=== PATIENT | female | born 1950 | race Caucasian/White ===

== ENCOUNTER 2017-01-28 10:08 | Outpatient (POV) | payer OTHER, SELFPAY | END 2017-01-28 11:43 | disposition home or self-care (01) | PROVIDERS: Visit Provider Podiatrist | DX: M20.12 Hallux valgus (acquired), left foot (principal); M20.11 Hallux valgus (acquired), right foot; L84 Corns and callosities ==

== ENCOUNTER → 2017-05-28 09:05 | Outpatient (REF) | payer OTHER, SELFPAY | LOC: LAB 09:05 | PROVIDERS: Visit Provider Physician Assistant | DX: R10.9 Unspecified abdominal pain (principal) | CPT/HCPCS: 87086; 87088; 87186 ==

== ENCOUNTER → 2018-01-14 13:31 | Outpatient (CLI) | payer MEDICARE, SELFPAY ==
[2018-01-14 14:02] LABS: Basophils # 0.1 K/mm3 (0-0.2); Basophils % 1.2 % (0.1-2.0); Eosinophils # 0.2 K/mm3 (0.0-0.4); Hematocrit 44.4 % (37.0-47.0); Hemoglobin 14.2 g/dL (12.2-16.2); Lymphocytes # 1.6 K/mm3 (0.7-4.5); Lymphocytes % 27.2 % (10-50); Mean Corpuscular HGB Conc 32.1 g/dL (31.8-35.4); Mean Corpuscular Hemoglobin 31.3 pg (27.0-31.2); Mean Corpuscular Volume 97.5 fl (81-99); Mean Platelet Volume 8.5 fl (7.4-10.4); Monocytes # 0.4 K/mm3 (0.1-1.0); Monocytes % 7.1 % (1.7-9.3); Neutrophils # 3.6 K/mm3 (1.8-7.8); Neutrophils % 61.6 % (37.0-80.0); Platelet Count 301 K/mm3 (142-424); Red Blood Count 4.55 M/mm3 (4.20-5.40); Red Cell Distribution Width 12.8 % (11.5-17.5); White Blood Count 5.8 K/mm3 (4.8-10.8)
[2018-01-14 14:27] LABS: Alanine Aminotransferase 15 U/L (12-78); Albumin Level 4.2 gm/dL (3.4-5.0); Alkaline Phosphatase 67 U/L (46-116); Anion Gap 13.5 mEq/L (5-15); Aspartate Amino Transferase 10 U/L (15-37); Bilirubin,Total 0.7 mg/dL (0.2-1.0); Blood Urea Nitrogen 11 mg/dL (7-18); Calcium 8.9 mg/dL (8.5-10.1); Carbon Dioxide 29 mmol/L (21.0-32.0); Chloride 102 mmol/L (98-107); Chol/HDL Ratio 3.6 (1-3.5); Cholesterol 256 mg/dL (140-200); Creatinine,Serum 0.65 mg/dL (0.55-1.02); Estimated Glomerular Filt Rate 91 ml/min (>60); GFR (African American) 111 ML/MIN (>60); Globulin 4.1 gm/dl (1.3-3.2); Glucose 101 mg/dL (74-106); HDL Cholesterol 71 mg/dL (29-89); LDL Cholesterol 168 mg/dL (0-130); Potassium 4.5 mmoL/L (3.5-5.1); Sodium 140 mmol/L (136-145); T4 (Thyroxine) 7.9 ug/dl (4.7-13.3); Thyroid Stimulating Hormone 2.38 uIU/ml (0.358-3.740); Total Protein,Serum 8.3 gm/dL (6.4-8.2); Triglycerides 85 mg/dL (30-200); VLDL Cholesterol 17 mg/dL (0-40)
[2018-01-16 09:27] LABS: Vitamin D 25 Hydroxy 29.6 ng/mL (30.0-100.0)
== END ==
PROVIDERS: PCP Physician Assistant; Visit Provider Physician Assistant
DX: R53.83 Other fatigue (principal); I10 Essential (primary) hypertension; M54.30 Sciatica, unspecified side
CPT/HCPCS: 80053; 80061; 82652; 84436; 84443; 85025; 87086; 87088; 87186

== ENCOUNTER → 2018-04-30 14:05 | Outpatient (CLI) | payer MEDICARE, SELFPAY ==
--- NOTE | 2018-04-30 14:10 | XR_ITS ---
XR hip LT 2-3V w/pelvis HISTORY: ITS.REASON: left hip pain ORDERING PHYSICIAN: Lois Cheung MD PATIENT AGE: 67 years COMPARISON: None FINDINGS: There are mild osteoarthritic changes of the left hip was some decrease in joint space and osteophyte formation along the acetabulum. No fracture or dislocation lytic or blastic change. IMPRESSION: Mild osteoarthritis of left hip
--- NOTE | 2018-04-30 14:10 | XR_ITS ---
XR hip RT 2-3V w/pelvis HISTORY: ITS.REASON: right hip pain ORDERING PHYSICIAN: Lois Cheung MD PATIENT AGE: 67 years COMPARISON: 07/23/2011 FINDINGS: Bipolar prosthesis is present. The acetabular component appears to have slightly rotated have a somewhat more horizontal position than on the previous exams. No fracture or dislocation. The femoral stem is in good position. IMPRESSION: 1. No acute finding. 2. Slight rotation of the acetabular cup now in a somewhat more horizontal position
== END ==
PROVIDERS: PCP Emergency Medicine; Visit Provider Orthopaedic Surgery
DX: M25.552 Pain in left hip (principal); M25.551 Pain in right hip
CPT/HCPCS: 73502

== ENCOUNTER → 2018-05-13 13:57 | Outpatient (CLI) | payer MEDICARE, SELFPAY ==
[2018-05-13 14:45] LABS: Basophils % 0.7 % (0.1-2.0); Eosinophils # 0.1 K/mm3 (0.0-0.4); Eosinophils % 0.9 % (0.1-12.0); Hematocrit 42.9 % (37.0-47.0); Hemoglobin 14.6 g/dL (12.2-16.2); Lymphocytes # 1.6 K/mm3 (0.7-4.5); Mean Corpuscular HGB Conc 33.9 g/dL (31.8-35.4); Mean Corpuscular Hemoglobin 32.3 pg (27.0-31.2); Mean Corpuscular Volume 95.3 fl (81-99); Mean Platelet Volume 8.7 fl (7.4-10.4); Monocytes # 0.3 K/mm3 (0.1-1.0); Monocytes % 5.4 % (1.7-9.3); Neutrophils # 4.2 K/mm3 (1.8-7.8); Platelet Count 279 K/mm3 (142-424); Red Blood Count 4.51 M/mm3 (4.20-5.40); White Blood Count 6.3 K/mm3 (4.8-10.8)
[2018-05-13 14:53] LABS: Alanine Aminotransferase 21 U/L (12-78); Albumin Level 4.1 gm/dL (3.4-5.0); Alkaline Phosphatase 73 U/L (46-116); Anion Gap 14.4 mEq/L (5-15); Aspartate Amino Transferase 10 U/L (15-37); Bilirubin,Total 0.6 mg/dL (0.2-1.0); Blood Urea Nitrogen 11 mg/dL (7-18); Calcium 9.1 mg/dL (8.5-10.1); Carbon Dioxide 29 mmol/L (21.0-32.0); Chloride 101 mmol/L (98-107); Chol/HDL Ratio 2.9 (1-3.5); Cholesterol 200 mg/dL (140-200); Creatinine,Serum 0.72 mg/dL (0.55-1.02); Estimated Glomerular Filt Rate 81 ml/min (>60); GFR (African American) 98 ML/MIN (>60); Globulin 4.1 gm/dl (1.3-3.2); Glucose 117 mg/dL (74-106); HDL Cholesterol 69 mg/dL (29-89); LDL Cholesterol 114 mg/dL (0-130); Potassium 4.4 mmoL/L (3.5-5.1); Sodium 140 mmol/L (136-145); T4 (Thyroxine) 8.1 ug/dl (4.7-13.3); Thyroid Stimulating Hormone 3.25 uIU/ml (0.358-3.740); Total Protein,Serum 8.2 gm/dL (6.4-8.2); Triglycerides 83 mg/dL (30-200); VLDL Cholesterol 17 mg/dL (0-40)
[2018-05-14 16:42] LABS: Hemoglobin A1C 6.2 % (0.0-7.0)
== END ==
PROVIDERS: Visit Provider Physician Assistant
DX: N89.8 Other specified noninflammatory disorders of vagina (principal); E78.5 Hyperlipidemia, unspecified; I10 Essential (primary) hypertension; R03.0 Elevated blood-pressure reading, without diagnosis of hypertension; R73.9 Hyperglycemia, unspecified
CPT/HCPCS: 80053; 80061; 83036; 84436; 84443; 85025; 87210

== ENCOUNTER → 2018-10-08 13:20 | Outpatient (CLI) | payer MEDICARE, SELFPAY ==
[2018-10-08 14:30] LABS: Alanine Aminotransferase 23 U/L (12-78); Alkaline Phosphatase 65 U/L (46-116); Anion Gap 14.6 mEq/L (5-15); Aspartate Amino Transferase 11 U/L (15-37); Bilirubin,Total 0.9 mg/dL (0.2-1.0); Blood Urea Nitrogen 13 mg/dL (7-18); Calcium 9.3 mg/dL (8.5-10.1); Carbon Dioxide 27 mmol/L (21.0-32.0); Chloride 103 mmol/L (98-107); Chol/HDL Ratio 2.6 (1-3.5); Cholesterol 186 mg/dL (140-200); Creatinine,Serum 0.69 mg/dL (0.55-1.02); Estimated Glomerular Filt Rate 85 ml/min (>60); GFR (African American) 103 ML/MIN (>60); Globulin 4.2 gm/dl (1.3-3.2); Glucose 108 mg/dL (74-106); HDL Cholesterol 71 mg/dL (29-89); LDL Cholesterol 101 mg/dL (0-130); Potassium 4.6 mmoL/L (3.5-5.1); Sodium 140 mmol/L (136-145); T4 (Thyroxine) 7.1 ug/dl (4.7-13.3); Thyroid Stimulating Hormone 2.58 uIU/ml (0.358-3.740); Total Protein,Serum 8.2 gm/dL (6.4-8.2); Triglycerides 69 mg/dL (30-200); VLDL Cholesterol 14 mg/dL (0-40)
[2018-10-08 14:32] LABS: Basophils % 0.7 % (0.1-2.0); Eosinophils # 0.1 K/mm3 (0.0-0.4); Eosinophils % 1.3 % (0.1-12.0); Hematocrit 42.4 % (37.0-47.0); Hemoglobin 13.6 g/dL (12.2-16.2); Lymphocytes # 1.6 K/mm3 (0.7-4.5); Lymphocytes % 27.3 % (10-50); Mean Corpuscular HGB Conc 32.1 g/dL (31.8-35.4); Mean Corpuscular Hemoglobin 32.9 pg (27.0-31.2); Mean Corpuscular Volume 102.7 fl (81-99); Mean Platelet Volume 9.1 fl (7.4-10.4); Monocytes # 0.4 K/mm3 (0.1-1.0); Monocytes % 6.8 % (1.7-9.3); Neutrophils # 3.7 K/mm3 (1.8-7.8); Neutrophils % 63.8 % (37.0-80.0); Platelet Count 274 K/mm3 (142-424); Red Blood Count 4.13 M/mm3 (4.20-5.40); Red Cell Distribution Width 13.3 % (11.5-17.5); White Blood Count 5.8 K/mm3 (4.8-10.8)
[2018-10-09 08:51] LABS: Testosterone,Total <3 ng/dL (3-41)
[2018-10-09 17:10] LABS: Vitamin B12 299 pg/mL (232-1245)
[2018-10-09 17:11] LABS: FSH 69.3 mIU/mL (.); LH 41.4 mIU/mL (.)
[2018-10-11 18:36] LABS: Estrogen 140 pg/mL (.)
== END ==
PROVIDERS: Visit Provider Physician Assistant
DX: R53.83 Other fatigue (principal); E78.5 Hyperlipidemia, unspecified
CPT/HCPCS: 80053; 80061; 82607; 82652; 82672; 83001; 83002; 84403; 84436; 84443; 85025

== ENCOUNTER → 2019-08-06 11:20 | Outpatient (CLI) | payer MEDICARE, SELFPAY ==
[2019-08-06 11:52] LABS: Basophils % 0.6 % (0.1-2.0); Eosinophils % 0.5 % (0.1-12.0); Hematocrit 40.7 % (37.0-47.0); Hemoglobin 13.6 g/dL (12.2-16.2); Lymphocytes # 1.6 K/mm3 (0.7-4.5); Lymphocytes % 24.4 % (10-50); Mean Corpuscular HGB Conc 33.5 g/dL (31.8-35.4); Mean Corpuscular Hemoglobin 32.7 pg (27.0-31.2); Mean Corpuscular Volume 97.6 fl (81-99); Mean Platelet Volume 8.2 fl (7.4-10.4); Monocytes # 0.4 K/mm3 (0.1-1.0); Monocytes % 5.6 % (1.7-9.3); Neutrophils # 4.6 K/mm3 (1.8-7.8); Neutrophils % 68.9 % (37.0-80.0); Platelet Count 251 K/mm3 (142-424); Red Blood Count 4.17 M/mm3 (4.20-5.40); White Blood Count 6.6 K/mm3 (4.8-10.8)
[2019-08-06 13:38] LABS: Chloride 101 mmol/L (98-107)
[2019-08-06 13:39] LABS: Potassium 4.4 mmoL/L (3.5-5.1); Sodium 139 mmol/L (136-145)
[2019-08-06 13:41] LABS: Alanine Aminotransferase 12 U/L (12-78); Albumin Level 4.5 g/dl (3.5-5.0); Albumin/Globulin Ratio 1.3 (1.1-1.8); Alkaline Phosphatase 63 U/L (38-126); Anion Gap 12.4 mEq/L (5-15); Aspartate Amino Transferase 20 U/L (14-36); Blood Urea Nitrogen 11 mg/dl (7-17); Carbon Dioxide 30 mmol/L (22.0-30.0); Cholesterol 177 mg/dl (140-200); Estimated Glomerular Filt Rate 84 ml/min (>60); GFR (African American) 101 ML/MIN (>60); Globulin 3.4 g/dL (1.3-3.2); Total Protein,Serum 7.9 g/dl (6.3-8.2); Triglycerides 83 mg/dl (30-150); VLDL Cholesterol 17 mg/dL (0-40)
[2019-08-06 13:42] LABS: Calcium 9.6 mg/dl (8.4-10.2); Chol/HDL Ratio 2.3 (1-3.5); Glucose 101 mg/dl (74-100); HDL Cholesterol 78 mg/dl (40-60)
[2019-08-06 13:53] LABS: Direct LDL Cholesterol 100.75 mg/dL (100-129)
[2019-08-06 13:59] LABS: Triiodothryronine (T3) Uptake 31 % (23.5-40.5)
[2019-08-06 14:00] LABS: Free Thyroxine Index 2.5 ug/dL (5.93-13.13); T4 (Thyroxine) 8.2 ug/dl (5.53-11.0)
[2019-08-06 14:13] LABS: Thyroid Stimulating Hormone 2.97 uIU/mL (0.465-4.68)
== END ==
PROVIDERS: Visit Provider Internal Medicine Adolescent Medicine
DX: E78.5 Hyperlipidemia, unspecified (principal); I10 Essential (primary) hypertension
CPT/HCPCS: 36415; 80053; 80061; 84436; 84443; 84479; 85025

== ENCOUNTER → 2020-02-22 07:08 | Outpatient (CLI) | payer SELFPAY ==
--- NOTE | 2020-02-22 07:09 | CT_ITS ---
PROCEDURE: CT HEART W CALCIUM SCORE CLINICAL HISTORY: screening for heart disease family hx heart disease COMPARISON: No exams were available for comparison TECHNIQUE: Axial images obtained with sagittal and coronal reformats. All CT scans at the facility use one or more dose reduction, viz: automated exposure control, ma/kV adjustment per patient size (including targeted exams where dose is matched to indication, i.e. head), or iterative reconstruction technique. FINDINGS: Coronary artery calcium score is 416 indicating extensive calcific plaque burden with very high cardiovascular disease risk. Also noted is a small hiatal hernia IMPRESSION: Extensive calcific plaque burden with very high cardiovascular disease risk Dictated by: Wei Naranjo MD 02/23/2020 08:57 Wei Naranjo MD in [place] 02/23/2020 08:57
== END ==
PROVIDERS: PCP Emergency Medicine; Visit Provider Internal Medicine Cardiovascular Disease
DX: Z13.6 Encounter for screening for cardiovascular disorders (principal); E78.5 Hyperlipidemia, unspecified; I10 Essential (primary) hypertension; R06.00 Dyspnea, unspecified; R06.83 Snoring; R09.89 Other specified symptoms and signs involving the circulatory and respiratory systems; R94.31 Abnormal electrocardiogram [ECG] [EKG]; Z82.49 Family history of ischemic heart disease and other diseases of the circulatory system; Z83.3 Family history of diabetes mellitus
CPT/HCPCS: 75571

== ENCOUNTER → 2020-02-22 07:10 | Outpatient (CLI) | payer MEDICARE, SELFPAY ==
--- NOTE | 2020-02-22 07:11 | CA_ITS ---
APPROVED REPORT EXAM: Comprehensive 2D, Doppler, and color-flow Echocardiogram Bench Chemist: Latha Sands CRT Ht: 5 ft 5 in Wt: 165lbs BSA: 1.82 BP: 185/93 mmHg Indications: Shortness of Breath, Hyperlipidemia, Hypertension/HDD 2D Dimensions LVOT 1.74 cm (M/F) 1.5-2.5 M-Mode Dimensions RVDd 2.32 cm (0.9-2.6) LA Diam 4.12 cm (1.9-4.0) LVDd 4.54 cm (3.5-5.7) Ao Diam 3.59 cm (2.0-3.7) LVDs 3.30 cm (3.5-5.7) IVSd 1.35 cm (0.6-1.1) PWd 0.98 cm (0.6-1.1) EF (Teich) 53.30% FS 27.30% EDV (Teich) 94.40 mL ESV (Teich) 44.10 mL LV Diastology E Decel Time 410.00 (160-240 msec) E/A Ratio 0.75 MED E' 5.80 (< 7 cm/sec) E'/MED E' Ratio 12.02 (>14) LAT E' 8.00 (<10 cm/sec) E/LAT E' Ratio 8.71 (>14) Aortic Valve AO Peak GR. 5.80 mmHg Mitral Valve MV A Velocity 93.00 (40-130 cm/s) E/A Ratio 0.75 MV Decel. Time 410.00 (160-240 ms) Pulmonary Valve PV Peak Velocity 80.00 (50-150 cm/s) Tricuspid Valve TR P. Velocity 243.00 cm/s RAP Estimate 10.00 mmHg RVSP 33.60 mmHg Left Ventricle Left atrium is mildly enlarged, left ventricle is normal size, left ventricle wall thickness is upper limits of normal, there is preserved left ventricular systolic function, visually estimated ejection fraction 55% with no regional wall motion abnormality. Grade 1 diastolic dysfunction seen without tissue Doppler evidence of raise left atrial pressure. Right Ventricle Right atrium and right ventricle are normal size and contractility. Aortic Valve Aortic valve is minimally thickened and fibrosed. There is no aortic stenosis or aortic insufficiency. Mitral Valve Mitral valve is grossly normal, there is mild mitral regurgitation. Tricuspid Valve Tricuspid valve is grossly normal, there is mild tricuspid regurgitation, calculated right ventricular systolic pressure is within normal range. Pulmonic Valve Pulmonic valve is poorly visualized. Great Vessels Aortic root is normal size. Pericardium No significant pericardial effusion noted. Conclusion 1. Mildly the left atrium, normal left ventricular size, visually estimated ejection fraction 55% with no regional wall motion abnormality, grade 1 diastolic dysfunction seen without tissue Doppler evidence of raise left atrial pressure. 2. Mild mitral and tricuspid regurgitation, calculated right ventricular systolic pressure is within normal range. 3. No significant pericardial effusion noted. Electronically signed by : Andrei Bello, 02/23/2020 06:14:19
--- NOTE | 2020-02-22 07:11 | CA_ITS ---
APPROVED REPORT Platemaker: Marcela Buck RT(R) Laterality: Bilateral Indications: right carotid bruit Risk Factors Hypertension: Hyperlipidemia Doppler Spectral Velocity Analysis ECA (R) 87.50/13.50 cm/s ECA (L) 84.80/10.30 cm/s dICA (R) 119.10/42.00 cm/s dICA (L) 118.50/37.60 cm/s Lars (R) 102.00/30.80 cm/s Lars (L) 115.60/30.80 cm/s pICA (R) 101.80/18.70 cm/s pICA (L) 95.10/18.80 cm/s dCCA (R) 83.80/23.90 cm/s dCCA (L) 90.00/32.60 cm/s pCCA (R) 90.90/20.30 cm/s pCCA (L) 107.10/32.60 cm/s Vert (R) 68.50/18.80 cm/s Vert (L) 53.90/12.70 cm/s ICA/CCA 1.42 ICA/CCA 1.32 Findings Duplex evaluation demonstrates stenosis of the left proximal internal carotid artery <20% with PSV <140 cm/sec, EDV <100 cm/sec, and IC/CC Ratio <4.0. Duplex evaluation demonstrates no evidence of hemodynamically significant stenosis of the right Internal Carotid Arteries. Conclusion Duplex evaluation demonstrates stenosis of the left proximal internal carotid artery <20% with PSV <140 cm/sec, EDV <100 cm/sec, and IC/CC Ratio <4.0. Duplex evaluation demonstrates no evidence of hemodynamically significant stenosis of the right Internal Carotid Arteries. Electronically signed by : Wei Naranjo MD 02/22/2020 16:09:43
[2020-02-22 08:35] LABS: Chloride 101 mmol/L (98-107)
[2020-02-22 08:36] LABS: Potassium 4.3 mmoL/L (3.5-5.1); Sodium 138 mmol/L (136-145)
[2020-02-22 08:38] LABS: Blood Urea Nitrogen 19 mg/dl (7-17); Estimated Glomerular Filt Rate 83 ml/min (>60); GFR (African American) 101 ML/MIN (>60)
[2020-02-22 08:39] LABS: Anion Gap 10.3 mEq/L (5-15); Calcium 9.8 mg/dl (8.4-10.2); Carbon Dioxide 31 mmol/L (22.0-30.0); Glucose 115 mg/dl (74-100)
[2020-02-22 08:47] LABS: NT Pro Brain Natriuretic Pep. 58.2 pg/mL (0-125)
== END ==
PROVIDERS: PCP Physician Assistant; Visit Provider Internal Medicine Cardiovascular Disease
DX: R94.31 Abnormal electrocardiogram [ECG] [EKG] (principal); R06.00 Dyspnea, unspecified; R09.89 Other specified symptoms and signs involving the circulatory and respiratory systems; E78.5 Hyperlipidemia, unspecified; I10 Essential (primary) hypertension; R06.83 Snoring; Z82.49 Family history of ischemic heart disease and other diseases of the circulatory system
CPT/HCPCS: 36415; 80048; 83880; 93306; 93880

== ENCOUNTER → 2020-02-23 10:32 | Outpatient (CLI) | payer MEDICARE, SELFPAY | PROVIDERS: PCP Emergency Medicine; Visit Provider Internal Medicine Cardiovascular Disease | DX: R06.00 Dyspnea, unspecified (principal); R09.89 Other specified symptoms and signs involving the circulatory and respiratory systems; R06.83 Snoring; R94.31 Abnormal electrocardiogram [ECG] [EKG]; E78.5 Hyperlipidemia, unspecified; I10 Essential (primary) hypertension; Z82.49 Family history of ischemic heart disease and other diseases of the circulatory system; G47.30 Sleep apnea, unspecified | CPT/HCPCS: G0399 ==

== ENCOUNTER → 2020-03-02 07:10 | Outpatient (CLI) | payer MEDICARE, SELFPAY ==
--- NOTE | 2020-03-02 | CA_ITS ---
APPROVED REPORT Exam: Exercise Treadmill Technologist: Mohini Perkins, Ht: 5 ft 5 in Wt: 163 lbs BSA: 1.81 m2 HR: 57 bpm BP: 172/79 mmHg Rhythm: NSR,LOW VOLTAGE QRS,ST-T ABNS INFERIORLY Medical History Medical History: HTN, Hyperlipidemia Medications: Metoprolol,,,,, Asa,,,,, Atorvastatin,,,,, Estradiol,,,,, Losartan/HCTZ,,,,, Allergies: No known drug allergies Cardiac Risk Factors: HTN, Hyperlipidemia, FHX of CAD Stress Test Details Test: Giorgio HR Resting HR: 65 bpm Max Heart Rate (APMHR): 153 bpm Max HR Achieved: 146 bpm Target HR (85% APMHR): 130 bpm % of APMHR: 95 Recovery HR: 126 bpm BP Resting BP: 172.0/79.0 mmHg Max BP: 186.0/90.0 mmHg Recovery BP: 200.0/84.0 mmHg ECG Clinical Exercise duration: 06:31 min Highest Stage Achieved: Exercise capacity: 7.0 METs Stress ECG Conclusion EXERCISED 6:30 ON GIORGIO PROTOCOL WITH MAX HEART RATE 146 BPM WHICH IS 95% OF PM FOR AGE. MAX BP 200/84. METS = 7.0. TEST STOPPED DUE TO SOA AND FATIGUE. NO CP. OCCASIONAL ISOLATED PVC. 0.5-0.75MM HORIZONTAL ST DEPRESSION LATERALLY. NORMALIZATION OF BASELINE INFERIOR LEAD ABNS. WITHIN NORMAL GXT. MYOVIEW IMAGES REPORTED SEPARATELY. Electronically signed by : Andrei Bello, 03/02/2020 12:32:45
--- NOTE | 2020-03-02 07:10 | NM_ITS ---
APPROVED REPORT Exam: Nuclear Stress Test Indication: short of breath..new onset hypertension Patient Location: Outpatient Stress Tech: Samantha Gregorio PA Tech:SHONNA Cheng RT(R)(N) Ht: 5 ft 5 in Wt: 165 lbs Bra Size: 36dd HR: 57 bpm BP: 172/79 mmHg BSA: 1.82 m2 BMI: 27.4 History: short of breath..new onset hypertension Procedure: Patient exercised on Giorgio protocol 6:30 minutes and sec, resting heart rate 57 bpm, resting blood pressure 172/79 mmHg, with exercise maximum heart rate achived was 146 bpm which is 95 % of the maximum predicted heart rate and blood pressure was 200/84 mmHg. Patient denied any complaint of chest pain. Patient has Adequate exercise capacity, achieved 7.0 METs of workload on treadmill, the blood pressure response to exercise was Hypertensive. Electrocardiogram Resting electrocardiogram showed sinus rhythm, with exercise there is less than 1.[address] segment depression noted from the baseline EKG. The EKG portion of the exercise Myoview is negative for ischemia. Cardiac Stress and Resting SPECT Images: Cardiac Stress and Resting SPECT images were obtained using technetium 99m Myoview 31.9 mCi stress and 10.53 mCi at rest. Gated SPECT for analysis of segmental wall motion and calculation of the ejection fraction also done. Cardiac stress and resting SPECT images show uniform myocardial activity without segmental perfusion abnormality, computer derived ejection fraction is 58% with no regional wall motion abnormality, right ventricle is normal size and contractility. Conclusion: 1. The EKG portion of the exercise Myoview is negative for ischemia, patient has adequate exercise capacity achieved 7 mets of workload on treadmill, the blood pressure response to exercise was hypertensive, there was no exercise-induced chest discomfort. 2. No scintigraphic evidence of reversible ischemia seen at this level of exercise, computer derived ejection fraction is 58% with no regional wall motion abnormality, right ventricle is normal size and contractility. 3. Normal exercise Myoview study except for hypertensive blood pressure response with exercise. Electronically signed by : Andrei Bello, 03/02/2020 13:07:17
--- NOTE | 2020-03-02 09:44 | HMH.ITSHM ---
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 [] losartan metoprolo asa biotin
== END ==
PROVIDERS: PCP Emergency Medicine; Visit Provider Internal Medicine Cardiovascular Disease
DX: E78.5 Hyperlipidemia, unspecified (principal); I10 Essential (primary) hypertension; R06.00 Dyspnea, unspecified; R09.89 Other specified symptoms and signs involving the circulatory and respiratory systems; R93.1 Abnormal findings on diagnostic imaging of heart and coronary circulation; R94.31 Abnormal electrocardiogram [ECG] [EKG]; Z82.49 Family history of ischemic heart disease and other diseases of the circulatory system
CPT/HCPCS: 78452; 93017; A9502

== ENCOUNTER → 2020-06-28 13:29 | Outpatient (CLI) | payer MEDICARE, SELFPAY | PROVIDERS: Visit Provider Physician Assistant | DX: R30.0 Dysuria (principal) | CPT/HCPCS: 87086 ==

== ENCOUNTER → 2020-07-06 09:15 | Outpatient (CLI) | payer MEDICARE, SELFPAY ==
--- NOTE | 2020-07-06 09:16 | CT_ITS ---
PROCEDURE: CT ABDOMEN PELVIS WO CON CLINICAL INDICATION: pelvic pain Frequent uti Pain off and on in different spots Lower pelvic pressure and pain when sitting COMPARISON: No exams were available for comparison TECHNIQUE: Axial images obtained with sagittal and coronal reformats. All CT scans at the facility use one or more dose reduction, viz: automated exposure control, ma/kV adjustment per patient size (including targeted exams where dose is matched to indication, i.e. head), or iterative reconstruction technique. FINDINGS: LOWER THORAX: Minimal atelectatic or fibrotic changes left lung base posteriorly. Coronary artery calcification noted right. ABDOMEN & PELVIS: The liver has an unremarkable appearance. Small hypodensity is present in the central aspect of the spleen at 7 mm nonspecific. Small gallstone is present in the gallbladder fundus. The adrenal glands have an unremarkable appearance. There is a hypodense area in the head of the pancreas measuring 13 x 9 mm. This is incompletely evaluated on this unenhanced exam. Stones are present in the lower pole of the left kidney measuring up to 5 mm. No ureteral calculi. No hydronephrosis. Artifact is present from right hip prosthesis. No evidence of appendicitis. Diverticulosis involves the descending colon and sigmoid colon. No evidence of diverticulitis. There has been a prior hysterectomy with some asymmetric soft tissue density in the left adnexal region which could be related to residual ovarian tissue or asymmetric prominent vaginal cuff. Prior right hip hemiarthroplasty. No acute bony findings. IMPRESSION: 1. Indeterminate 13 x 9 mm hypodense lesion in the pancreatic head. Suggesting Mar I with pancreatic protocol without and with gadolinium enhancement with MRCP for further evaluation. 2. Left nephrolithiasis. 3. Cholelithiasis 4. Colonic diverticulosis without diverticulitis Dictated by: Wei Naranjo MD 07/07/2020 09:22 Wei Naranjo MD in [place] 07/07/2020 09:22
== END ==
PROVIDERS: PCP Physician Assistant; Visit Provider Physician Assistant
DX: R10.2 Pelvic and perineal pain (principal)
CPT/HCPCS: 74176

== ENCOUNTER → 2020-07-12 12:48 | Outpatient (CLI) | payer MEDICARE, SELFPAY ==
[2020-07-12 13:06] LABS: Chloride 102 mmol/L (98-107)
[2020-07-12 13:07] LABS: Potassium 3.6 mmoL/L (3.5-5.1); Sodium 139 mmol/L (136-145)
[2020-07-12 13:09] LABS: Blood Urea Nitrogen 13 mg/dl (7-17); Estimated Glomerular Filt Rate 72 ml/min (>60); GFR (African American) 87 ML/MIN (>60)
[2020-07-12 13:10] LABS: Anion Gap 10.6 mEq/L (5-15); Calcium 9.4 mg/dl (8.4-10.2); Carbon Dioxide 30 mmol/L (22.0-30.0); Glucose 128 mg/dl (74-100)
== END ==
PROVIDERS: Visit Provider Physician Assistant
DX: Z01.818 Encounter for other preprocedural examination (principal)
CPT/HCPCS: 36415; 80048

== ENCOUNTER → 2020-07-14 09:07 | Outpatient (CLI) | payer MEDICARE, SELFPAY ==
--- NOTE | 2020-07-14 09:07 | MR_ITS ---
PROCEDURE INFORMATION: Exam: MR Abdomen Without and With Contrast Exam date and time: 07/14/2020 9:07 AM Age: 69 years old Clinical indication: Pain and abnormal findings; Abnormal radiologic finding of the abdomen; Abdominal pain; Generalized; Patient HX: Pancreatic lesion seen on CT, ruq abd pain that comes and goes. ; Additional info: PT felt nauseous after injection of prohance, equilibrium scan not obtained because of PT feeling sick. 3 and 5 min post contrast obtained on time. 15ml prhance injected TECHNIQUE: Imaging protocol: MR of the abdomen without and with intravenous contrast. Contrast material: PROHANCE; Contrast volume: 15 ml; Contrast route: IV; COMPARISON: CT ABDOMEN PELVIS WO CON 07/06/2020 10:08 AM FINDINGS: Liver: No mass. Gallbladder and bile ducts: Unremarkable. No stones. No ductal dilation. Pancreas: 1 Cm simple cyst in the head of the pancreas. No evidence for malignancy. No ductal dilation. Spleen: Unremarkable. No splenomegaly. Adrenal glands: Unremarkable. No mass. Kidneys and ureters: Unremarkable. No solid mass. No hydronephrosis. Stomach and bowel: Visualized stomach and intestines are unremarkable. Intraperitoneal space: No free fluid. Arteries: No abdominal aortic aneurysm. Bones/joints: Unremarkable. Soft tissues: Unremarkable. IMPRESSION: Unremarkable abdomen. There is a 1 cm simple cyst in the head of the pancreas. No evidence for malignancy.
== END ==
PROVIDERS: PCP Physician Assistant; Visit Provider Physician Assistant
DX: K86.89 Other specified diseases of pancreas (principal)
CPT/HCPCS: 74183; 76376; A9576

== ENCOUNTER → 2020-08-22 13:16 | Outpatient (POV) | payer MEDICARE, SELFPAY | PROVIDERS: Visit Provider Dermatology | DX: Z00.00 Encounter for general adult medical examination without abnormal findings (principal) ==

== ENCOUNTER → 2020-12-05 18:02 | Outpatient (CLI) | payer MEDICARE, SELFPAY | PROVIDERS: Visit Provider Family Medicine | DX: N39.0 Urinary tract infection, site not specified (principal) | CPT/HCPCS: 87086 ==

== ENCOUNTER → 2020-12-07 08:12 | Outpatient (CLI) | payer MEDICARE, SELFPAY ==
--- NOTE | 2020-12-07 08:17 | XR_ITS ---
PROCEDURE: XR HIP RT 2-3V W/PELVIS CLINICAL INDICATION: RT hip pain COMPARISON: CR HIPCMLT XR hip LT 2-3V w/pelvis from 04/30/2018 CR HIPCMRT XR hip RT 2-3V w/pelvis from 04/30/2018 FINDINGS: Status post right hip hemiarthroplasty. There is good alignment. 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 No acute fracture or dislocation. No lytic or blastic change. IMPRESSION: Status post right hip hemiarthroplasty with mild right acetabular protrusio not readily apparent on the previous exam Dictated by: Wei Naranjo MD 12/07/2020 12:41 Wei Naranjo MD in [place] 12/07/2020 12:41
--- NOTE | 2020-12-07 08:17 | XR_ITS ---
PROCEDURE: XR KNEE RT 4V CLINICAL INDICATION: RT knee pain COMPARISON: CR [id number] KNEE-4 OR 5 VIEWS-RT from 01/24/2016 FINDINGS: No fracture or dislocation. No lytic or blastic change. There is normal mineralization. There are mild osteoarthritic changes of the medial compartment and patellofemoral joint. There is chondrocalcinosis of the medial and lateral meniscus. Other findings:None. IMPRESSION: Mild osteoarthritis of the right knee with chondrocalcinosis overall not significantly changed Dictated by: Wei Naranjo MD 12/07/2020 12:43 Wei Naranjo MD in [place] 12/07/2020 12:43
== END ==
PROVIDERS: PCP Physician Assistant; Visit Provider Orthopaedic Surgery
DX: M25.561 Pain in right knee (principal); M25.551 Pain in right hip
CPT/HCPCS: 73502; 73564

== ENCOUNTER → 2021-03-06 10:33 | Outpatient (CLI) | payer MEDICARE, SELFPAY ==
--- NOTE | 2021-03-06 10:33 | MM_ITS ---
PROCEDURE INFORMATION: Exam: MG Bilateral Screening 3D Mammography Exam date and time: 03/06/2021 10:33 AM Age: 70 years old Clinical indication: Screening mammogram TECHNIQUE: Imaging protocol: Bilateral screening tomosynthesis and 2D mammography including computer-aided detection (CAD) when performed. COMPARISON: 1. MG MY Digital Bruno Screen BILAT 01/12/2020 1:17 PM 2. MG MY Digital Bruno Screen BILAT 12/07/2018 8:48 AM FINDINGS: MAMMOGRAPHY: Breast composition: The breast tissue is extremely dense, limiting the sensitivity of mammography. Mass: None. Architectural distortion: No new or suspicious architectural distortion. Calcifications: No new or suspicious calcifications are present Asymmetric density: No new or suspicious asymmetric density is present Skin thickening: None. Axillary adenopathy: None. IMPRESSION: No mammographic evidence of malignancy. Recommend annual screening mammography unless otherwise clinically indicated. ASSESSMENT: BI-RADS category 1: Negative
== END ==
PROVIDERS: PCP Physician Assistant; Visit Provider Obstetrics & Gynecology
DX: Z12.31 Encounter for screening mammogram for malignant neoplasm of breast (principal)
CPT/HCPCS: 77063; 77067

== ENCOUNTER → 2022-01-17 09:30 | Outpatient (CLI) | payer MEDICARE, SELFPAY ==
[2022-01-17 09:50] LABS: Basophils # 0.1 K/mm3 (0-0.2); Basophils % 1.2 % (0.1-2.0); Eosinophils % 0.4 % (0.1-12.0); Hematocrit 43.8 % (37.0-47.0); Hemoglobin 14.1 g/dL (12.2-16.2); Lymphocytes # 1.5 K/mm3 (0.7-4.5); Lymphocytes % 21.7 % (10-50); Mean Corpuscular HGB Conc 32.2 g/dL (31.8-35.4); Mean Corpuscular Hemoglobin 33.7 pg (27.0-31.2); Mean Corpuscular Volume 104.7 fl (81-99); Mean Platelet Volume 8.8 fl (7.4-10.4); Monocytes # 0.4 K/mm3 (0.1-1.0); Monocytes % 5.6 % (1.7-9.3); Platelet Count 269 K/mm3 (142-424); Red Blood Count 4.18 M/mm3 (4.20-5.40); Red Cell Distribution Width 12.9 % (11.5-17.5)
[2022-01-17 10:16] LABS: Chloride 101 mmol/L (98-107); Potassium 4.1 mmoL/L (3.5-5.1); Sodium 138 mmol/L (136-145)
[2022-01-17 10:18] LABS: Blood Urea Nitrogen 16 mg/dl (7-17); Estimated Glomerular Filt Rate 83 ml/min (>60); GFR (African American) 100 ML/MIN (>60)
[2022-01-17 10:19] LABS: Alanine Aminotransferase 96 U/L (12-78); Albumin Level 4.4 g/dl (3.5-5.0); Albumin/Globulin Ratio 1.3 (1.1-1.8); Alkaline Phosphatase 114 U/L (38-126); Anion Gap 11.1 mEq/L (5-15); Aspartate Amino Transferase 99 U/L (14-36); Bilirubin,Total 1.1 mg/dl (0.2-1.3); Calcium 9.7 mg/dl (8.4-10.2); Carbon Dioxide 30 mmol/L (22.0-30.0); Chol/HDL Ratio 2.6 (1-3.5); Cholesterol 170 mg/dl (140-200); Globulin 3.5 g/dL (1.3-3.2); Glucose 113 mg/dl (74-100); HDL Cholesterol 65 mg/dl (40-60); Total Protein,Serum 7.9 g/dl (6.3-8.2); Triglycerides 95 mg/dl (30-150); VLDL Cholesterol 19 mg/dL (0-40)
[2022-01-17 10:30] LABS: Direct LDL Cholesterol 56.56 mg/dL (100-129)
[2022-01-17 10:49] LABS: Thyroid Stimulating Hormone 2.06 uIU/mL (0.465-4.68)
== END ==
PROVIDERS: PCP Family Medicine; Visit Provider Family Medicine
DX: I10 Essential (primary) hypertension (principal); Z00.00 Encounter for general adult medical examination without abnormal findings; Z79.899 Other long term (current) drug therapy
CPT/HCPCS: 36415; 80053; 80061; 84443; 85025

== ENCOUNTER → 2022-01-24 08:41 | Outpatient (CLI) | payer MEDICARE, SELFPAY ==
--- NOTE | 2022-01-24 08:41 | XR_ITS ---
FINAL REPORT TECHNIQUE: Bone densitometry calculations of the lumbar spine, right forearm and left hip were obtained. CLINICAL HISTORY: . post menopausal screening FINDINGS: DEXA BONE DENSITY AXIAL SKELETON Using L1-4, the bone mineral density of the spine is 0.982 g/cm2, corresponding to T-score of -0.6. Classified as normal. Using the left hip, the bone mineral density of the femoral neck is 0.602 g/cm2, corresponding to a T-score of -2.2. Classified as osteopenia. Using the right forearm, the bone mineral density of the distal 1/3 is 0.689 g/cm2, corresponding to a T-score of -0.1. Classified as normal. NOTE: T-score: Standard deviation compared with peak bone mass of young adult mean. *Following the recommendations of the International Society of Bone densitometry, classification of hip BMD is based on the lower of two T-scores; total hip or femoral neck. IMPRESSION: Diminished bone mineral density of the left hip consistent with osteopenia. FRAX 10 year fracture risk is 6.9% for a hip fracture and 30% for a major osteoporotic fracture. Normal bone mineral density of the spine and right forearm. Reviewed, Interpreted and Dictated by Braeden Adams MD Transcribed by Mary Vivas Authenticated and [facility]
== END ==
PROVIDERS: PCP Family Medicine; Visit Provider Family Medicine
DX: Z13.820 Encounter for screening for osteoporosis; Z78.0 Asymptomatic menopausal state; M85.89 Other specified disorders of bone density and structure, multiple sites
CPT/HCPCS: 77080

== ENCOUNTER → 2022-02-05 13:16 | Outpatient (CLI) | payer MEDICARE, SELFPAY ==
[2022-02-05 14:45] LABS: Alanine Aminotransferase 121 U/L (12-78); Albumin Level 4.4 g/dl (3.5-5.0); Albumin/Globulin Ratio 1.3 (1.1-1.8); Alkaline Phosphatase 119 U/L (38-126); Anion Gap 18.4 mEq/L (5-15); Aspartate Amino Transferase 112 U/L (14-36); Bilirubin,Direct 0.1 mg/dl (0.0-0.4); Bilirubin,Indirect 0.9 mg/dL (0.0-0.9); Bilirubin,Unconjugated 0.9 mg/dL (0.0-1.1); Blood Urea Nitrogen 12 mg/dl (7-17); Calcium 9.8 mg/dl (8.4-10.2); Carbon Dioxide 29 mmol/L (22.0-30.0); Chloride 94 mmol/L (98-107); Estimated Glomerular Filt Rate 83 ml/min (>60); GFR (African American) 100 ML/MIN (>60); Globulin 3.3 g/dL (1.3-3.2); Glucose 91 mg/dl (74-100); Potassium 3.4 mmoL/L (3.5-5.1); Sodium 138 mmol/L (136-145); Total Protein,Serum 7.7 g/dl (6.3-8.2)
== END ==
PROVIDERS: PCP Family Medicine; Visit Provider Family Medicine
DX: R74.8 Abnormal levels of other serum enzymes (principal); R79.89 Other specified abnormal findings of blood chemistry
CPT/HCPCS: 36415; 80053; 80076

== ENCOUNTER → 2022-03-07 11:33 | Outpatient (CLI) | payer MEDICARE, SELFPAY ==
[2022-03-07 12:39] LABS: Alanine Aminotransferase 40 U/L (12-78); Albumin Level 4.6 g/dl (3.5-5.0); Albumin/Globulin Ratio 1.3 (1.1-1.8); Alkaline Phosphatase 70 U/L (38-126); Anion Gap 11.1 mEq/L (5-15); Aspartate Amino Transferase 48 U/L (14-36); Bilirubin,Total 0.9 mg/dl (0.2-1.3); Blood Urea Nitrogen 18 mg/dl (7-17); Calcium 9.5 mg/dl (8.4-10.2); Carbon Dioxide 28 mmol/L (22.0-30.0); Chloride 105 mmol/L (98-107); Estimated Glomerular Filt Rate 55 ml/min (>60); GFR (African American) 67 ML/MIN (>60); Globulin 3.5 g/dL (1.3-3.2); Glucose 104 mg/dl (74-100); Potassium 4.1 mmoL/L (3.5-5.1); Sodium 140 mmol/L (136-145); Total Protein,Serum 8.1 g/dl (6.3-8.2)
[2022-03-07 13:10] LABS: Iron 120 ug/dL (37-170)
[2022-03-07 13:19] LABS: Total Iron Binding Capacity 300 ug/dL (265-497)
[2022-03-08 14:09] LABS: Anti-Centromere B Antibodies <0.2 AI (0.0-0.9); Anti-DNA (DS) Ab Qn <1 IU/mL (0-9); Anti-Jo-1 <0.2 AI (0.0-0.9); Anti-Smith Antibody <0.2 AI (0.0-0.9); Antichromatin Antibodies 0.2 AI (0.0-0.9); Antiscleroderma-70 Antibodies <0.2 AI (0.0-0.9); RNP Antibodies <0.2 AI (0.0-0.9); Sjogren's Anti-SS-A <0.2 AI (0.0-0.9); Sjogren's Anti-SS-B <0.2 AI (0.0-0.9)
[2022-03-11 22:05] LABS: Hep A Ab, IgM NEGATIVE; Hepatitis B Core Antibody IgM NEGATIVE; Hepatitis B Surface Antigen NEGATIVE; Hepatitis C Antibody 0.2
== END ==
PROVIDERS: PCP Family Medicine; Visit Provider Family Medicine
DX: R79.89 Other specified abnormal findings of blood chemistry (principal); R74.01 Elevation of levels of liver transaminase levels; R74.8 Abnormal levels of other serum enzymes
CPT/HCPCS: 36415; 80053; 80074; 83540; 83550; 86225; 86235

== ENCOUNTER → 2022-03-21 09:08 | Outpatient (CLI) | payer MEDICARE, SELFPAY ==
--- NOTE | 2022-03-21 09:21 | XR_ITS ---
FINAL REPORT CLINICAL HISTORY: bilateral knee pain x1 month COMPARISON: 12/07/2020 FINDINGS: Three views of the right knee reveal no evidence of fracture or dislocation. The bony alignment is normal. There stable, mild degenerative changes and meniscal calcifications. Soft tissues are without acute abnormality. IMPRESSION: Stable degenerative changes without acute bony abnormality. Reviewed, Interpreted and Dictated by Remington Junior III, MD Transcribed by Kayy Mas Authenticated and [facility]
--- NOTE | 2022-03-21 09:21 | XR_ITS ---
FINAL REPORT CLINICAL HISTORY: bilateral knee pain x1 month FINDINGS: LEFT KNEE 3 views of the left knee were obtained. There is no acute fracture or dislocation. There are mild degenerative changes and meniscal calcifications. Soft tissues are without acute abnormality. IMPRESSION: Degenerative change without acute bony abnormality. Reviewed, Interpreted and Dictated by Remington Junior III, MD Transcribed by Kayy Mas Authenticated and . [facility]
== END ==
PROVIDERS: PCP Family Medicine; Visit Provider Orthopaedic Surgery
DX: M25.561 Pain in right knee (principal); M25.562 Pain in left knee
CPT/HCPCS: 73562

== ENCOUNTER → 2022-03-27 07:48 | Outpatient (CLI) | payer MEDICARE, SELFPAY ==
--- NOTE | 2022-03-27 07:48 | MM_ITS ---
PROCEDURE INFORMATION: Exam: MG Bilateral Screening 3D Mammography Exam date and time: 03/27/2022 7:42 AM Age: 71 years old Clinical indication: Screening mammogram TECHNIQUE: Imaging protocol: Bilateral Screening tomosynthesis and 2D mammography including computer-aided detection (CAD) when performed. COMPARISON: 1. MG MM DIG SCREENING MAMM BI W/CAD 03/06/2021 10:45 AM 2. MG MY Digital Bruno Screen BILAT 01/12/2020 1:17 PM 3. MG MY Digital Bruno Screen BILAT 12/07/2018 8:48 AM FINDINGS: MAMMOGRAPHY: Breast composition: The breast tissue is extremely dense, which lowers the sensitivity of mammography. Mass: None. Architectural distortion: No new or suspicious architectural distortion. Calcifications: No new or suspicious calcifications are present Asymmetric density: No new or suspicious asymmetric density is present Skin thickening: None. Axillary adenopathy: None. IMPRESSION: No mammographic evidence of malignancy. Recommend annual screening mammography unless otherwise clinically indicated. ASSESSMENT: BI-RADS category 1: Negative
== END ==
PROVIDERS: PCP Family Medicine; Visit Provider Obstetrics & Gynecology
DX: Z12.31 Encounter for screening mammogram for malignant neoplasm of breast (principal)
CPT/HCPCS: 77063; 77067

== ENCOUNTER → 2022-04-05 07:59 | Outpatient (CLI) | payer MEDICARE, SELFPAY ==
[2022-04-05 08:46] LABS: Chloride 104 mmol/L (98-107)
[2022-04-05 08:47] LABS: Potassium 4.2 mmoL/L (3.5-5.1); Sodium 139 mmol/L (136-145)
[2022-04-05 08:49] LABS: Alanine Aminotransferase 23 U/L (12-78); Alkaline Phosphatase 59 U/L (38-126); Anion Gap 8.2 mEq/L (5-15); Aspartate Amino Transferase 30 U/L (14-36); Bilirubin,Total 0.9 mg/dl (0.2-1.3); Blood Urea Nitrogen 17 mg/dl (7-17); Carbon Dioxide 31 mmol/L (22.0-30.0); Estimated Glomerular Filt Rate 71 ml/min (>60); GFR (African American) 86 ML/MIN (>60); Glucose 111 mg/dl (74-100)
[2022-04-05 08:50] LABS: Albumin Level 4.2 g/dl (3.5-5.0); Albumin/Globulin Ratio 1.2 (1.1-1.8); Calcium 8.9 mg/dl (8.4-10.2); Globulin 3.6 g/dL (1.3-3.2); Total Protein,Serum 7.8 g/dl (6.3-8.2)
== END ==
PROVIDERS: PCP Family Medicine; Visit Provider Family Medicine
DX: R79.89 Other specified abnormal findings of blood chemistry (principal)
CPT/HCPCS: 36415; 80053

== ENCOUNTER → 2022-05-28 07:58 | Outpatient (CLI) | payer MEDICARE, SELFPAY ==
[2022-05-28 08:51] LABS: Alanine Aminotransferase 16 U/L (12-78); Albumin Level 4.1 g/dl (3.5-5.0); Albumin/Globulin Ratio 1.2 (1.1-1.8); Alkaline Phosphatase 63 U/L (38-126); Anion Gap 9.2 mEq/L (5-15); Aspartate Amino Transferase 22 U/L (14-36); Bilirubin,Total 0.7 mg/dl (0.2-1.3); Blood Urea Nitrogen 13 mg/dl (7-17); Carbon Dioxide 28 mmol/L (22.0-30.0); Chloride 104 mmol/L (98-107); Chol/HDL Ratio 3.3 (1-3.5); Cholesterol 247 mg/dl (140-200); Estimated Glomerular Filt Rate 62 ml/min (>60); GFR (African American) 75 ML/MIN (>60); Globulin 3.4 g/dL (1.3-3.2); Glucose 109 mg/dl (74-100); HDL Cholesterol 75 mg/dl (40-60); Potassium 4.2 mmoL/L (3.5-5.1); Sodium 137 mmol/L (136-145); Total Protein,Serum 7.5 g/dl (6.3-8.2); Triglycerides 112 mg/dl (30-150); VLDL Cholesterol 22 mg/dL (0-40)
[2022-05-28 09:01] LABS: Direct LDL Cholesterol 132.01 mg/dL (100-129)
== END ==
PROVIDERS: PCP Family Medicine; Visit Provider Family Medicine
DX: E78.5 Hyperlipidemia, unspecified (principal); I10 Essential (primary) hypertension
CPT/HCPCS: 36415; 80053; 80061

== ENCOUNTER → 2022-07-15 07:34 | Outpatient (CLI) | payer MEDICARE, SELFPAY ==
[2022-07-15 09:15] LABS: Chloride 97 mmol/L (98-107); Potassium 3.9 mmoL/L (3.5-5.1); Sodium 140 mmol/L (136-145)
[2022-07-15 09:17] LABS: Alanine Aminotransferase 20 U/L (12-78); Alkaline Phosphatase 57 U/L (38-126); Aspartate Amino Transferase 26 U/L (14-36); Bilirubin,Total 0.6 mg/dl (0.2-1.3); Blood Urea Nitrogen 12 mg/dl (7-17); Estimated Glomerular Filt Rate 83 ml/min (>60); GFR (African American) 100 ML/MIN (>60)
[2022-07-15 09:18] LABS: Albumin Level 4.1 g/dl (3.5-5.0); Albumin/Globulin Ratio 1.3 (1.1-1.8); Anion Gap 15.9 mEq/L (5-15); Calcium 9.1 mg/dl (8.4-10.2); Carbon Dioxide 31 mmol/L (22.0-30.0); Cholesterol 172 mg/dl (140-200); Globulin 3.2 g/dL (1.3-3.2); Glucose 105 mg/dl (74-100); HDL Cholesterol 86 mg/dl (40-60); Total Protein,Serum 7.3 g/dl (6.3-8.2); Triglycerides 79 mg/dl (30-150); VLDL Cholesterol 16 mg/dL (0-40)
[2022-07-15 09:30] LABS: Direct LDL Cholesterol 71.13 mg/dL (100-129)
== END ==
PROVIDERS: PCP Family Medicine; Visit Provider Family Medicine
DX: E78.5 Hyperlipidemia, unspecified (principal); R79.89 Other specified abnormal findings of blood chemistry
CPT/HCPCS: 36415; 80053; 80061

== ENCOUNTER → 2022-10-14 12:21 | Outpatient (CLI) | payer MEDICARE, SELFPAY | PROVIDERS: PCP Nurse Practitioner Family; Visit Provider Family Medicine | DX: E78.5 Hyperlipidemia, unspecified (principal) | CPT/HCPCS: 36415 ==

== ENCOUNTER → 2022-10-15 07:55 | Outpatient (CLI) | payer MEDICARE, SELFPAY ==
[2022-10-15 08:45] LABS: Alanine Aminotransferase 18 U/L (12-78); Albumin Level 4.3 g/dl (3.5-5.0); Albumin/Globulin Ratio 1.2 (1.1-1.8); Alkaline Phosphatase 61 U/L (38-126); Anion Gap 10.2 mEq/L (5-15); Aspartate Amino Transferase 23 U/L (14-36); Bilirubin,Total 0.6 mg/dl (0.2-1.3); Blood Urea Nitrogen 18 mg/dl (7-17); Calcium 9.3 mg/dl (8.4-10.2); Carbon Dioxide 31 mmol/L (22.0-30.0); Chloride 104 mmol/L (98-107); Chol/HDL Ratio 2.1 (1-3.5); Cholesterol 171 mg/dl (140-200); Estimated Glomerular Filt Rate 71 ml/min (>60); GFR (African American) 86 ML/MIN (>60); Globulin 3.5 g/dL (1.3-3.2); Glucose 117 mg/dl (74-100); HDL Cholesterol 81 mg/dl (40-60); Potassium 4.2 mmoL/L (3.5-5.1); Sodium 141 mmol/L (136-145); Total Protein,Serum 7.8 g/dl (6.3-8.2); Triglycerides 93 mg/dl (30-150); VLDL Cholesterol 19 mg/dL (0-40)
[2022-10-15 08:56] LABS: Direct LDL Cholesterol 68.18 mg/dL (100-129)
[2022-10-15 09:01] LABS: 25-OH Vitamin D, Total 42.8 ng/mL (30-100)
[2022-10-15 11:11] LABS: Hemoglobin A1C 6.2 % (4.0-6.0)
== END ==
PROVIDERS: PCP Nurse Practitioner Family; Visit Provider Nurse Practitioner Family
DX: R79.89 Other specified abnormal findings of blood chemistry (principal); E78.5 Hyperlipidemia, unspecified; M85.80 Other specified disorders of bone density and structure, unspecified site; Z78.0 Asymptomatic menopausal state; R73.03 Prediabetes
CPT/HCPCS: 36415; 80053; 80061; 82306; 83036

== ENCOUNTER → 2022-10-24 15:28 | Outpatient (CLI) | payer MEDICARE, SELFPAY ==
[2022-10-24 15:35] LABS: MANUAL DIFFERENTIAL MANUAL DIFFERENTIAL (MANUAL DIFF)
[2022-10-24 16:18] LABS: Basophils # 0.1 K/mm3 (0-0.2); Basophils % 0.8 % (0.1-2.0); Eosinophils # 0.1 K/mm3 (0.0-0.4); Eosinophils % 0.8 % (0.1-12.0); Hematocrit 41.7 % (37.0-47.0); Hemoglobin 13.8 g/dL (12.2-16.2); Lymphocytes # 2.2 K/mm3 (0.7-4.5); Mean Corpuscular HGB Conc 33.1 g/dL (31.8-35.4); Mean Corpuscular Hemoglobin 32.7 pg (27.0-31.2); Mean Corpuscular Volume 98.9 fl (81-99); Mean Platelet Volume 8.6 fl (7.4-10.4); Monocytes # 0.6 K/mm3 (0.1-1.0); Monocytes % 6.3 % (1.7-9.3); Neutrophils # 6.2 K/mm3 (1.8-7.8); Neutrophils % 68.1 % (37.0-80.0); Platelet Count 229 K/mm3 (142-424); Red Blood Count 4.22 M/mm3 (4.20-5.40); Red Cell Distribution Width 12.9 % (11.5-17.5); White Blood Count 9.1 K/mm3 (4.8-10.8)
[2022-10-24 17:13] LABS: Alanine Aminotransferase 21 U/L (12-78); Albumin Level 4.7 g/dl (3.5-5.0); Albumin/Globulin Ratio 1.2 (1.1-1.8); Alkaline Phosphatase 60 U/L (38-126); Anion Gap 13.1 mEq/L (5-15); Aspartate Amino Transferase 27 U/L (14-36); Bilirubin,Total 0.9 mg/dl (0.2-1.3); Blood Urea Nitrogen 17 mg/dl (7-17); Calcium 9.5 mg/dl (8.4-10.2); Carbon Dioxide 31 mmol/L (22.0-30.0); Chloride 100 mmol/L (98-107); Estimated Glomerular Filt Rate 71 ml/min (>60); GFR (African American) 86 ML/MIN (>60); Glucose 118 mg/dl (74-100); Potassium 4.1 mmoL/L (3.5-5.1); Sodium 140 mmol/L (136-145); Total Protein,Serum 8.7 g/dl (6.3-8.2)
[2022-10-24 17:44] LABS: Thyroid Stimulating Hormone 2.37 uIU/mL (0.465-4.68)
[2022-10-24 20:10] LABS: Eosinophils % 2 % (0-3); Lymphocytes % 28 % (10-50); Monocytes % 5 % (2-9); Neutrophils % 65 % (42-76); Total Cells Counted 100
[2022-10-24 20:11] LABS: Macrocytosis 1+; Platelet Estimate Normal
[2022-10-26 10:12] LABS: Testosterone,Total <3 ng/dL (3-67)
== END ==
PROVIDERS: PCP Nurse Practitioner Family; Visit Provider Obstetrics & Gynecology
DX: I10 Essential (primary) hypertension (principal); L65.9 Nonscarring hair loss, unspecified; R53.83 Other fatigue
CPT/HCPCS: 36415; 80053; 84403; 84443; 85007; 85014; 85018; 85048; 85049

== ENCOUNTER → 2022-10-25 07:38 | Outpatient (CLI) | payer MEDICARE, SELFPAY ==
[2022-10-25 07:55] LABS: Microscopic, Urine URINE MICROSCOPIC (MICROSCOPIC)
[2022-10-25 08:19] LABS: Basophils # 0.1 K/mm3 (0-0.2); Basophils % 1.2 % (0.1-2.0); Eosinophils # 0.1 K/mm3 (0.0-0.4); Eosinophils % 1.7 % (0.1-12.0); Hematocrit 40.3 % (37.0-47.0); Hemoglobin 13.6 g/dL (12.2-16.2); Lymphocytes # 1.9 K/mm3 (0.7-4.5); Lymphocytes % 31.5 % (10-50); Mean Corpuscular HGB Conc 33.7 g/dL (31.8-35.4); Mean Corpuscular Hemoglobin 33.1 pg (27.0-31.2); Mean Corpuscular Volume 98.3 fl (81-99); Mean Platelet Volume 9.1 fl (7.4-10.4); Monocytes # 0.5 K/mm3 (0.1-1.0); Monocytes % 7.8 % (1.7-9.3); Neutrophils # 3.5 K/mm3 (1.8-7.8); Neutrophils % 57.8 % (37.0-80.0); Platelet Count 211 K/mm3 (142-424); Red Cell Distribution Width 12.6 % (11.5-17.5); White Blood Count 6.1 K/mm3 (4.8-10.8)
[2022-10-25 08:38] LABS: Chloride 103 mmol/L (98-107); Potassium 4.1 mmoL/L (3.5-5.1); Sodium 140 mmol/L (136-145)
[2022-10-25 08:41] LABS: Alanine Aminotransferase 17 U/L (12-78); Albumin/Globulin Ratio 1.3 (1.1-1.8); Alkaline Phosphatase 65 U/L (38-126); Anion Gap 12.1 mEq/L (5-15); Aspartate Amino Transferase 22 U/L (14-36); Bilirubin,Total 0.9 mg/dl (0.2-1.3); Carbon Dioxide 29 mmol/L (22.0-30.0); Cholesterol 162 mg/dl (140-200); Globulin 3.2 g/dL (1.3-3.2); Total Protein,Serum 7.2 g/dl (6.3-8.2); Triglycerides 79 mg/dl (30-150); VLDL Cholesterol 16 mg/dL (0-40)
[2022-10-25 08:42] LABS: Calcium 9.7 mg/dl (8.4-10.2); Glucose 114 mg/dl (74-100); HDL Cholesterol 74 mg/dl (40-60)
[2022-10-25 08:46] LABS: Blood Urea Nitrogen 17 mg/dl (7-17); Chol/HDL Ratio 2.2 (1-3.5); Estimated Glomerular Filt Rate 71 ml/min (>60); GFR (African American) 86 ML/MIN (>60)
[2022-10-25 08:53] LABS: Direct LDL Cholesterol 63.49 mg/dL (100-129)
[2022-10-25 09:12] LABS: Thyroid Stimulating Hormone 3.43 uIU/mL (0.465-4.68)
[2022-10-25 10:56] LABS: Appearance,Urine CLEAR (Clear); Bilirubin,Urine Negative (Negative); Blood, Urine TRACE-I (Negative); Color,Urine YELLOW (Yellow); Glucose,Urine (UA) Negative (Negative); Ketones,Urine Negative (Negative); Leukocyte Esterase,Urine Negative (Negative); Nitrate,Urine Negative (Negative); PH,Urine 5.5 (5.0-8.5); Protein,Urine Negative (Negative); Specific Gravity, Urine 1.025 (1.005-1.030); Urobilinogen,Urine 0.2 EU/dl (0.2)
[2022-10-25 10:59] LABS: Vitamin B12 353 pg/mL (239-931)
[2022-10-25 11:09] LABS: Microalbumin/Creatinine Ratio 8.3
[2022-10-25 11:28] LABS: Creatinine,Urine Random 142 mg/dL (Not Estab.)
[2022-10-25 11:45] LABS: Hemoglobin A1C 6.1 % (4.0-6.0)
[2022-10-25 11:57] LABS: Squamous Epithelial Cell,Urine Occasional #/hpf (0-5)
[2022-10-25 11:58] LABS: Bacteria,Urine Trace /lpf; RBC,Urine Occasional #/hpf (0-3)
== END ==
PROVIDERS: PCP Nurse Practitioner Family; Visit Provider Obstetrics & Gynecology
DX: D53.9 Nutritional anemia, unspecified (principal); I10 Essential (primary) hypertension; R73.03 Prediabetes; E78.5 Hyperlipidemia, unspecified
CPT/HCPCS: 36415; 80053; 80061; 81001; 82043; 82570; 82607; 82746; 83036; 84443; 85025; 87086

== ENCOUNTER 2022-12-18 13:39 | Emergency (ER) | payer MEDICARE, SELFPAY ==
[2022-12-18 13:40] VITALS: BP 167/71; PULSE 63; RESP 16; TEMP 36.5; O2SAT 95; BMI 27.8
[2022-12-18 14:00] VITALS: BP 165/75; PULSE 59; O2SAT 97
--- NOTE | 2022-12-18 14:02 | HMH.EDGENADL ---
Discharge Plan Disposition Patient Disposition: Home, Self-Care Prescriptions Prescriptions: No Action paroxetine HCl 10 mg tablet 10 mg PO DAILY Qty: 30 2RF aspirin [Aspir-81] 81 mg tablet,delayed release (DR/EC) 81 mg PO DAILY losartan-hydrochlorothiazide 100-12.5 mg tablet 1 tab PO QAM Qty: 90 1RF metoprolol succinate 25 mg tablet extended release 24 hr 25 mg PO DAILY Qty: 90 2RF rosuvastatin [Crestor] 10 mg tablet 10 mg PO DAILY Qty: 90 1RF Referrals Follow up/Referrals: Colleen Taylor APRN [Primary Care Provider] - See instructions Activity Restrictions/Add. Instructions Additional Instructions/Restrictions: You may call [phone] to make an appointment with plastic surgery for wound management if you would like. Otherwise there is nothing to do for the superficial partial-thickness burn to your thumb please continue to place topical antibiotic ointment on this and keep it dressed until it is fully healed. Clinical Impressions Clinical Impression: Superficial partial thickness burn of thumb Discharge ED Provider: Maddy Medrano General Adult HPI General Chief complaint: Burn/Smoke Inhalation Stated complaint: [id number]@home, burn on Lt thumb Time Seen by Provider: 12/18/22 13:55 Mode of Arrival: Ambulatory Source of Information: Patient Limitations: No Limitations Description of Symptoms (Recalled from ER Triage Doc. by RN): Presents to ED with c/o a burn to her left thumb while using a hot glue gun 20 min [employer]. Patient states she placed it under cold water for 10 minutes and applied burn cream with no relief. Denies taking any medications [employer]. History of Present Illness HPI narrative: Patient is a 72-year-old female here with a burn to the volar aspect of her left thumb at the distal phalanx and proximal phalanx. She states that she was working with hot glue and fell onto her hand and she subsequently has developed some blisters and significant pain. She has no areas of being insensate she has full range of motion. No injuries elsewhere. She is not up-to-date on tetanus that she is aware of. Related Data Home Medications Medication Instructions Recorded Confirmed aspirin 81 mg tablet,delayed 81 mg PO DAILY 03/16/20 11/21/22 release (Aspir-) Previous Rx's Medication Instructions Recorded metoprolol succinate 25 mg 25 mg PO DAILY #90 tabs 07/29/22 tablet,extended release 24 hr rosuvastatin 10 mg tablet (Crestor) 10 mg PO DAILY #90 tabs 10/14/22 losartan 100 1 tab PO QAM #90 tabs 10/17/22 mg-hydrochlorothiazide 12.5 mg tablet paroxetine HCl 10 mg tablet 10 mg PO DAILY #30 tabs 10/24/22 Allergies Allergy/AdvReac Type Severity Reaction Status Date / Time paxlovid Allergy Intermediate Rash Uncoded 11/21/22 08:53 [facility] Disclaimer: The information contained in this section may have been updated after the patient was seen, as this information can be updated by other users. Medical History Abnormal EKG Agatston coronary artery calcium score greater than 400 Dyspnea Elevated LFTs Family history of heart disease HTN (hypertension) Hx of cataract Hyperlipidemia Osteoarthritis of left knee Osteoarthritis of right knee Rash Right carotid bruit Sciatic nerve pain Sciatica Snoring Surgical History H/O colonoscopy with polypectomy 03/2022 History of bilateral oophorectomy History of hysterectomy History of right hip replacement Hx of cataract surgery bilateral 05/2022 Hx of LASIK Family History Father Hyperlipidemia Hypertension Mother Coronary artery disease Diabetes Hyperlipidemia Hypertension Brother Coronary artery disease Diabetes Hyperlipidemia Hypertension Social History Smoking Status: Never smoker alcohol
[2022-12-18 14:11] VITALS: BP 165/75; PULSE 58; RESP 16; TEMP 36.5; O2SAT 98
== END 2022-12-18 14:12 | disposition home or self-care (01) ==
PROVIDERS: Emergency Provider Student in an Organized Health Care Education/Training Program; PCP Nurse Practitioner Family
DX: T23.212A Burn of second degree of left thumb (nail), initial encounter (principal); I25.10 Atherosclerotic heart disease of native coronary artery without angina pectoris; I11.9 Hypertensive heart disease without heart failure; E78.5 Hyperlipidemia, unspecified; R93.1 Abnormal findings on diagnostic imaging of heart and coronary circulation; R09.89 Other specified symptoms and signs involving the circulatory and respiratory systems; X19.XXXA Contact with other heat and hot substances, initial encounter
CPT/HCPCS: 99283

== ENCOUNTER → 2023-01-16 09:23 | Outpatient (CLI) | payer MEDICARE, SELFPAY ==
[2023-01-16 15:54] LABS: Microscopic, Urine URINE MICROSCOPIC (MICROSCOPIC)
[2023-01-16 21:46] LABS: Basophils # 0.1 K/mm3 (0-0.2); Basophils % 1.1 % (0.1-2.0); Eosinophils # 0.1 K/mm3 (0.0-0.4); Eosinophils % 1.1 % (0.1-12.0); Hematocrit 39.9 % (37.0-47.0); Hemoglobin 13.9 g/dL (12.2-16.2); Lymphocytes # 1.7 K/mm3 (0.7-4.5); Lymphocytes % 25.5 % (10-50); Mean Corpuscular HGB Conc 34.7 g/dL (31.8-35.4); Mean Corpuscular Hemoglobin 34.9 pg (27.0-31.2); Mean Corpuscular Volume 100.6 fl (81-99); Mean Platelet Volume 10.2 fl (7.4-10.4); Monocytes # 0.5 K/mm3 (0.1-1.0); Monocytes % 6.9 % (1.7-9.3); Neutrophils # 4.4 K/mm3 (1.8-7.8); Neutrophils % 65.4 % (37.0-80.0); Platelet Count 237 K/mm3 (142-424); Red Blood Count 3.96 M/mm3 (4.20-5.40); Red Cell Distribution Width 12.6 % (11.5-17.5); White Blood Count 6.8 K/mm3 (4.8-10.8)
[2023-01-16 21:54] LABS: Appearance,Urine CLOUDY (Clear); Bilirubin,Urine Negative (Negative); Blood, Urine TRACE-I (Negative); Color,Urine YELLOW (Yellow); Glucose,Urine (UA) Negative (Negative); Ketones,Urine Negative (Negative); Leukocyte Esterase,Urine Negative (Negative); Nitrate,Urine Negative (Negative); Protein,Urine Negative (Negative); Specific Gravity, Urine >= 1.030 (1.005-1.030); Urobilinogen,Urine 0.2 EU/dl (0.2)
[2023-01-16 22:15] LABS: Alanine Aminotransferase 18 U/L (12-78); Albumin Level 4.5 g/dl (3.5-5.0); Albumin/Globulin Ratio 1.4 (1.1-1.8); Alkaline Phosphatase 56 U/L (38-126); Anion Gap 14.9 mEq/L (5-15); Aspartate Amino Transferase 29 U/L (14-36); Bilirubin,Total 0.9 mg/dl (0.2-1.3); Blood Urea Nitrogen 15 mg/dl (7-17); Calcium 9.4 mg/dl (8.4-10.2); Carbon Dioxide 28 mmol/L (22.0-30.0); Chloride 100 mmol/L (98-107); Chol/HDL Ratio 2.5 (1-3.5); Cholesterol 161 mg/dl (140-200); Estimated Glomerular Filt Rate 62 ml/min (>60); GFR (African American) 75 ML/MIN (>60); Globulin 3.3 g/dL (1.3-3.2); Glucose 108 mg/dl (74-100); HDL Cholesterol 64 mg/dl (40-60); Potassium 4.9 mmoL/L (3.5-5.1); Sodium 138 mmol/L (136-145); Total Protein,Serum 7.8 g/dl (6.3-8.2); Triglycerides 95 mg/dl (30-150); VLDL Cholesterol 19 mg/dL (0-40)
[2023-01-16 22:24] LABS: Amorphous Sediment,Urine 2+ /lpf; Bacteria,Urine 4+ /lpf; WBC,Urine Occasional #/hpf (0-3)
[2023-01-16 22:26] LABS: Creatinine,Urine Random 250 mg/dL (Not Estab.)
[2023-01-16 22:30] LABS: Microalbumin/Creatinine Ratio 6.7
[2023-01-16 23:25] LABS: Direct LDL Cholesterol 72.02 mg/dL (100-129)
== END ==
PROVIDERS: PCP Nurse Practitioner Family; Visit Provider Nurse Practitioner Family
DX: R73.03 Prediabetes (principal); I10 Essential (primary) hypertension; E78.5 Hyperlipidemia, unspecified
CPT/HCPCS: 80053; 80061; 81001; 82043; 82570; 83036; 85025; 87086

== ENCOUNTER 2023-04-10 08:09 | Outpatient (CLI) | payer MEDICARE, SELFPAY ==
--- NOTE | 2023-04-10 08:09 | MM_ITS ---
PROCEDURE INFORMATION: Exam: MG Bilateral Screening 3D Mammography Exam date and time: 04/10/2023 8:35 AM Age: 72 years old Clinical indication: Screening mammogram TECHNIQUE: Imaging protocol: Bilateral Screening tomosynthesis and 2D mammography including computer-aided detection (CAD) when performed. COMPARISON: 1. MG MM DIG SCREENING MAMM BI W/CAD 03/27/2022 7:42 AM 2. MG MM DIG SCREENING MAMM BI W/CAD 03/06/2021 10:45 AM 3. MG MY Digital Bruno Screen BILAT 01/12/2020 1:17 PM 4. MG MY Digital Bruno Screen BILAT 12/07/2018 8:48 AM FINDINGS: MAMMOGRAPHY: Breast composition: The breast tissue is extremely dense, which lowers the sensitivity of mammography. Mass: None. Architectural distortion: No new or suspicious architectural distortion. Calcifications: No new or suspicious calcifications are present Asymmetric density: No new or suspicious asymmetric density is present Skin thickening: None. Axillary adenopathy: None. IMPRESSION: No mammographic evidence of malignancy. Recommend annual screening mammography unless otherwise clinically indicated. ASSESSMENT: BI-RADS category 1: Negative
== END 2023-04-10 23:59 ==
LOC: RAD 08:09
PROVIDERS: PCP Nurse Practitioner Family; Visit Provider Obstetrics & Gynecology
DX: Z12.31 Encounter for screening mammogram for malignant neoplasm of breast (principal)
CPT/HCPCS: 77063; 77067

== ENCOUNTER 2023-05-12 16:28 | Outpatient (CLI) | payer MEDICARE, SELFPAY | END 2023-05-12 23:59 | PROVIDERS: PCP Nurse Practitioner Family; Visit Provider Nurse Practitioner Family | DX: J02.9 Acute pharyngitis, unspecified (principal); R11.2 Nausea with vomiting, unspecified; R05.9 Cough, unspecified; R50.9 Fever, unspecified; R09.81 Nasal congestion; Z20.828 Contact with and (suspected) exposure to other viral communicable diseases | CPT/HCPCS: 87070 ==

== ENCOUNTER 2023-07-14 18:00 | Outpatient (CLI) | payer MEDICARE, SELFPAY | END 2023-07-14 23:59 | disposition home or self-care (01) | LOC: LAB.DROPOF 07-15 08:42 | PROVIDERS: PCP Nurse Practitioner Family; Visit Provider Nurse Practitioner Family | DX: N39.0 Urinary tract infection, site not specified (principal); B96.29 Other Escherichia coli [E. coli] as the cause of diseases classified elsewhere | CPT/HCPCS: 87086; 87088; 87186 ==

== ENCOUNTER 2023-08-11 10:45 | Outpatient (CLI) | payer MEDICARE, SELFPAY ==
[2023-08-11 10:30] LABS: Basophils # 0.1 K/mm3 (0-0.2); Basophils % 1.1 % (0.1-2.0); Eosinophils # 0.1 K/mm3 (0.0-0.4); Eosinophils % 0.9 % (0.1-12.0); Hematocrit 41.9 % (37.0-47.0); Hemoglobin 14.1 g/dL (12.2-16.2); Lymphocytes # 1.8 K/mm3 (0.7-4.5); Mean Corpuscular HGB Conc 33.6 g/dL (31.8-35.4); Mean Corpuscular Hemoglobin 32.9 pg (27.0-31.2); Mean Corpuscular Volume 97.9 fl (81-99); Mean Platelet Volume 8.9 fl (7.4-10.4); Monocytes # 0.5 K/mm3 (0.1-1.0); Monocytes % 7.2 % (1.7-9.3); Neutrophils # 3.9 K/mm3 (1.8-7.8); Neutrophils % 61.7 % (37.0-80.0); Platelet Count 242 K/mm3 (142-424); Red Blood Count 4.28 M/mm3 (4.20-5.40); Red Cell Distribution Width 13.6 % (11.5-17.5); White Blood Count 6.4 K/mm3 (4.8-10.8)
[2023-08-11 10:59] LABS: Chloride 102 mmol/L (98-107); Potassium 4.5 mmoL/L (3.5-5.1); Sodium 138 mmol/L (136-145)
[2023-08-11 11:01] LABS: Blood Urea Nitrogen 18 mg/dl (7-17); Estimated Glomerular Filt Rate 62 ml/min (>60); GFR (African American) 75 ML/MIN (>60)
[2023-08-11 11:02] LABS: Alanine Aminotransferase 19 U/L (12-78); Albumin Level 4.7 g/dl (3.5-5.0); Albumin/Globulin Ratio 1.1 (1.1-1.8); Alkaline Phosphatase 71 U/L (38-126); Anion Gap 12.5 mEq/L (5-15); Aspartate Amino Transferase 27 U/L (14-36); Bilirubin,Total 1.2 mg/dl (0.2-1.3); Calcium 10.3 mg/dl (8.4-10.2); Carbon Dioxide 28 mmol/L (22.0-30.0); Chol/HDL Ratio 2.2 (1-3.5); Cholesterol 203 mg/dl (140-200); Globulin 4.2 g/dL (1.3-3.2); Glucose 134 mg/dl (74-100); HDL Cholesterol 92 mg/dl (40-60); Total Protein,Serum 8.9 g/dl (6.3-8.2); Triglycerides 126 mg/dl (30-150); VLDL Cholesterol 25 mg/dL (0-40)
[2023-08-11 11:13] LABS: Direct LDL Cholesterol 87.99 mg/dL (100-129)
[2023-08-11 11:20] LABS: Free T4 (Free Thyroxine) 1.12 ng/dl (0.78-2.19)
[2023-08-11 11:24] LABS: 25-OH Vitamin D, Total 36.6 ng/mL (30-100)
[2023-08-11 11:33] LABS: Thyroid Stimulating Hormone 0.02 uIU/mL (0.465-4.68)
[2023-08-11 12:46] LABS: Vitamin B12 698 pg/mL (239-931)
[2023-08-11 13:17] LABS: Hemoglobin A1C 6.1 % (4.0-6.0)
== END 2023-08-11 23:59 | disposition home or self-care (01) ==
LOC: LAB.DROPOF 10:45
PROVIDERS: PCP Nurse Practitioner Family; Visit Provider Nurse Practitioner Family
DX: E55.9 Vitamin D deficiency, unspecified (principal); I10 Essential (primary) hypertension; E78.5 Hyperlipidemia, unspecified; L65.8 Other specified nonscarring hair loss; R73.03 Prediabetes; N95.1 Menopausal and female climacteric states; R53.83 Other fatigue; Z68.27 Body mass index [BMI] 27.0-27.9, adult
CPT/HCPCS: 80053; 80061; 82306; 82607; 83036; 84439; 84443; 85025

== ENCOUNTER 2024-02-09 13:50 | Outpatient (CLI) | payer MEDICARE, SELFPAY ==
[2024-02-09 13:27] LABS: Basophils # 0.1 K/mm3 (0-0.2); Basophils % 1.2 % (0.1-2.0); Eosinophils % 0.6 % (0.1-12.0); Hematocrit 36.8 % (37.0-47.0); Hemoglobin 12.4 g/dL (12.2-16.2); Lymphocytes # 1.6 K/mm3 (0.7-4.5); Lymphocytes % 27.3 % (10-50); Mean Corpuscular HGB Conc 33.7 g/dL (31.8-35.4); Mean Corpuscular Hemoglobin 34.2 pg (27.0-31.2); Mean Corpuscular Volume 101.4 fl (81-99); Mean Platelet Volume 9.3 fl (7.4-10.4); Monocytes # 0.4 K/mm3 (0.1-1.0); Monocytes % 7.4 % (1.7-9.3); Neutrophils # 3.8 K/mm3 (1.8-7.8); Neutrophils % 63.6 % (37.0-80.0); Platelet Count 234 K/mm3 (142-424); Red Blood Count 3.63 M/mm3 (4.20-5.40); Red Cell Distribution Width 13.1 % (11.5-17.5); White Blood Count 5.9 K/mm3 (4.8-10.8)
[2024-02-09 13:49] LABS: Alanine Aminotransferase 17 U/L (12-78); Albumin Level 4.5 g/dl (3.5-5.0); Albumin/Globulin Ratio 1.4 (1.1-1.8); Alkaline Phosphatase 63 U/L (38-126); Anion Gap 13.1 mEq/L (5-15); Aspartate Amino Transferase 24 U/L (14-36); Bilirubin,Total 1.2 mg/dl (0.2-1.3); Blood Urea Nitrogen 14 mg/dl (7-17); Calcium 9.6 mg/dl (8.4-10.2); Carbon Dioxide 29 mmol/L (22.0-30.0); Chloride 103 mmol/L (98-107); Chol/HDL Ratio 2.4 (1-3.5); Cholesterol 161 mg/dl (140-200); Estimated Glomerular Filt Rate 71 ml/min (>60); GFR (African American) 86 ML/MIN (>60); Globulin 3.2 g/dL (1.3-3.2); Glucose 103 mg/dl (74-100); HDL Cholesterol 67 mg/dl (40-60); Potassium 4.1 mmoL/L (3.5-5.1); Sodium 141 mmol/L (136-145); Total Protein,Serum 7.7 g/dl (6.3-8.2); Triglycerides 91 mg/dl (30-150); VLDL Cholesterol 18 mg/dL (0-40)
[2024-02-09 14:00] LABS: Direct LDL Cholesterol 71.69 mg/dL (100-129)
[2024-02-09 14:07] LABS: 25-OH Vitamin D, Total 40.2 ng/mL (30-100)
[2024-02-09 14:22] LABS: Thyroid Stimulating Hormone 2.76 uIU/mL (0.465-4.68)
[2024-02-09 14:50] LABS: HIV (1&2) Antibody Rapid NONREACTIVE (NONREACTIVE)
[2024-02-09 14:59] LABS: Hemoglobin A1C 5.9 % (4.0-6.0)
[2024-02-09 15:37] LABS: Free T4 (Free Thyroxine) 1.06 ng/dl (0.78-2.19)
[2024-02-10 05:11] LABS: HCV Ab Non Reactive (Non Reactive)
== END 2024-02-09 23:59 | disposition home or self-care (01) ==
LOC: LAB.DROPOF 13:50
PROVIDERS: PCP Nurse Practitioner Family; Visit Provider Nurse Practitioner Family
DX: Z11.4 Encounter for screening for human immunodeficiency virus [HIV] (principal); Z11.59 Encounter for screening for other viral diseases; E78.5 Hyperlipidemia, unspecified; E55.9 Vitamin D deficiency, unspecified; R73.03 Prediabetes; D53.9 Nutritional anemia, unspecified; E05.90 Thyrotoxicosis, unspecified without thyrotoxic crisis or storm; R79.89 Other specified abnormal findings of blood chemistry
CPT/HCPCS: 80053; 80061; 82306; 83036; 84439; 84443; 85025; 86803; 87389

== ENCOUNTER 2024-02-17 09:12 | Outpatient (CLI) | payer MEDICARE, SELFPAY ==
--- NOTE | 2024-02-17 09:13 | XR_ITS ---
FINAL REPORT TECHNIQUE: Bone mineral density was calculated of the lumbar spine and hip. CLINICAL HISTORY: osteopenia COMPARISON: None FINDINGS: Using L1-4, the bone mineral density of the spine is 0.934 g/cm2, corresponding to T-score of -1.0. Using the right forearm, the bone mineral density of the 1/3 is 0.672 g/cm2, corresponding to a T-score of -0.4. Using the left hip, the bone mineral density of the femoral neck is 0.653 g/cm?, corresponding to a T-score of -1.8. NOTE: T-score: Standard deviation compared with peak bone mass of young adult mean. *Following the recommendations of the International Society of Bone densitometry, classification of hip BMD is based on the lower of two T-scores; total hip or femoral neck. IMPRESSION: Diminished bone mineral density of the left hip consistent with low bone density. Normal bone mineral density of the right forearm and lumbar spine. Reviewed, Interpreted and Dictated by Remington Junior III, MD Transcribed by Meri Riley Authenticated and . [facility]
== END 2024-02-17 23:59 | disposition home or self-care (01) ==
LOC: RAD 09:13
PROVIDERS: PCP Nurse Practitioner Family; Visit Provider Nurse Practitioner Family
DX: M81.0 Age-related osteoporosis without current pathological fracture (principal); M85.80 Other specified disorders of bone density and structure, unspecified site; Z78.0 Asymptomatic menopausal state
CPT/HCPCS: 77080

== ENCOUNTER 2024-05-27 08:09 | Outpatient (CLI) | payer MEDICARE, SELFPAY ==
--- NOTE | 2024-05-27 08:10 | MM_ITS ---
PROCEDURE INFORMATION: Exam: MG Bilateral Screening 3D Mammography Exam date and time: 05/27/2024 8:23 AM Age: 73 years old Clinical indication: Screening examination TECHNIQUE: Imaging protocol: Bilateral Screening tomosynthesis and 2D mammography including computer-aided detection (CAD) when performed. COMPARISON: 1. MG MM DIG SCREENING MAMM BI W/CAD 04/10/2023 8:35 AM 2. MG MM DIG SCREENING MAMM BI W/CAD 03/27/2022 7:42 AM FINDINGS: MAMMOGRAPHY: Breast composition: The breasts are extremely dense, which lowers the sensitivity of mammography. Mass: None. Architectural distortion: None. Calcifications: No suspicious calcifications. Asymmetric density: None. Skin thickening: None. Axillary adenopathy: None. IMPRESSION: No mammographic evidence of malignancy. Annual screening is recommended unless otherwise clinically indicated. ASSESSMENT: BI-RADS Category 1: Negative.
== END 2024-05-27 23:59 | disposition home or self-care (01) ==
LOC: RAD 08:10
PROVIDERS: PCP Nurse Practitioner Family; Visit Provider Obstetrics & Gynecology
DX: Z12.31 Encounter for screening mammogram for malignant neoplasm of breast (principal)
CPT/HCPCS: 77063; 77067

== ENCOUNTER 2024-06-15 16:11 | Outpatient (CLI) | payer MEDICARE, SELFPAY | END 2024-06-15 23:59 | disposition home or self-care (01) | LOC: LAB.DROPOF 16:12 | PROVIDERS: PCP Nurse Practitioner Family; Visit Provider Nurse Practitioner Family | DX: R35.0 Frequency of micturition (principal) | CPT/HCPCS: 87086; 87088; 87186 ==

== ENCOUNTER 2024-08-23 14:35 | Outpatient (CLI) | payer MEDICARE, SELFPAY ==
--- OUTSIDE RECORDS SUMMARY | 2024-08-23 14:40 | XMS_ITS | Clinical Summary ---
Author Organization [employer] Address [address] [place] [address] Care Team Providers Care Spring Assembler Name Role Phone Macy Matos DO Primary Care Provider [phone] [phone] Allergies No known active allergies Medications aspirin 81 MG EC tablet Take 1 tablet (81 mg total) by mouth in the morning. Active metoprolol tartrate (LOPRESSOR) 25 MG tablet Take 1 tablet (25 mg total) by mouth in the morning and 1 tablet (25 mg total) before bedtime. Active losartan-hydroC HLOROthiazide (HYZAAR) 50-12.5 mg per tablet Take 1 tablet by mouth in the morning. Active estradioL (VIVELLE-DOT) 0.05 mg/[address] 1 patch onto the skin twice a week. Active rosuvastatin (CRESTOR) 10 MG tablet Take 1 tablet (10 mg total) by mouth in the morning. Active Active Problems Problem Noted Date Diagnosed Date HLD (hyperlipidemia) 06/13/2022 History of colon polyps 06/13/2022 Encounter for screening colonoscopy 06/13/2022 Resolved Problems Problem Noted Date Diagnosed Date Resolved Date Gastric polyp 06/13/2022 06/13/2022 Social History Tobacco Use Types Packs/Day Years Used Date Smoking Tobacco: Never Passive Smoke Exposure: Past Smokeless Tobacco: Never Interpersonal Safety Answer Date Record ed Family or friends hurt you Not on file 03/27 Family or friends insult you Not on file Family or friends threaten you Not on file 0 03/27/2023 Family or friends scream or curse at you Not on file 03/27/2023 Housing Stability Answer Date Recorded Living situation today Not on file Living situation problems Not on file 2023 Food Insecurity Answer Date Recorded Food run out past 12 months Not on file 03/10 Food did not last past 12 months Not on file 03/27/2023 Employment Answer Date Recorded Help finding and keeping a job Not on file 0 03/27/2023 Family and Community Support Answer Gil[place] e Recorded Help with Day to Day Activities Not on file 03/27/2023 Feeling Lonely or Isolated Not on file 03/27 Educational Attainment Answer Date All rded Speak language other than Amharic at home Not on file 03/27/2023 Want help with school or training Not on file 03/27/2023 Depression Answer Date Recorded PHQ-2 Risk Not on file 03/27/2023 Disabilities Answer Date Recorded Difficulty concentrating Not on file 024 Difficulty doing errands alone Not on file 0 03/27/2023 Substance Use Answer Date Recorded Used prescription meds for non-medical reasons N ot on file 03/27/2023 Used illegal drugs past 12 months Not on file 03/27/2023 Comments No Sex and Gender Information Value Date Recorded Sex Assigned at Not on file Legal Sex Female 3:27 PM CDT Gender Identity Not on file Sexual Orientation Not on file Last Filed Vital Signs Vital Sign Reading Time Taken Comments Blood Pressure 117/57 06/13/2022 12:30 PM EDT Pulse 65 06/13/2022 12:30 PM EDT Temperature 36.2 C (97.2 F) 06/13/2022 11:14 AM EDT Respiratory Rate 18 06/13/2022 12:30 PM EDT Oxygen Saturation 98% 06/13/2022 11:14 AM EDT Inhaled Oxygen Concentration - - Weight 84.8 kg (187 lb) 06/13/2022 11:14 AM EDT Height 165.1 cm (5' 5 ) 06/13/2022 11:14 AM EDT Body Mass Index 31.12 06/13/2022 11:14 AM EDT Plan of Treatment Health Maintenance Due Date Last Done Comments Medicare Initial AWV G0438 CT Colonography 1952 DXA SCAN 1952 FOBT/FIT 1952 Fit-DNA (Cologuard) 1952 Sigmoidoscopy 1952 Depression Screening (12+) 1964 Hepatitis C Screening 1970 DTAP/TDAP/TD VACCINES (1 - Tdap) 11/07/1971 Shingles Vaccine (Zoster) (1 of 2) 2002 Pneumococcal 50+ years (2 of 2 - PPSV23) 01/14/2019 01/14/2018 Breast Cancer Screening 01/11/2022 01/12/2020, 12/07 Tobacco Cessation Counseling and Screening (12+) 06/14/2023 06/13/2022 COVID-19 VACCINE (2023-2 5 season) 2023 12/12/2021, 07/20/2021, 12/13/2020, Additional history exists Falls Risk Screening 03/10/2024 Influenza Vaccine (Season Ended) 2024 11/04/2019, 11/21/2018, 12/30/2017 Respiratory Syncytial Virus (RSV) Adult or (1 - 1-dose 75+ series) 11/07/2027 Colonoscopy 06/13/2032 06/13/2022 Colorectal Cancer Screening 06/13/2032 Procedures Procedure Name Priority Date/Time Associated Diagnosis Comments MM DIGITAL MAMMO SCREEN WITH ALEXANDRU BILATERAL Routine 01/12/2020 2:12 PM EST from Last 3 Months or Most Recently Relevant to Health Maintenance Results * MM digital mammo screen with alexandru bilateral (01/12/2020 2:12 PM EST) Anatomical Region Laterality Modality Breast Bilateral Mammography 01/12/2020 2:12 PM EST Narrative 01/12/2020 8:11 PM EST PROCEDURE: Digital screening mammogram with tomosynthesis. REASON FOR EXAM: Routine screening. FAMILY HISTORY: No family history of breast cancer. COMPARISON STUDY: [facility] [id number]. FINDINGS: Craniocaudal and mediolateral oblique images of both breasts were obtained in 2D, C-view, and 3D modes. Bilateral exaggerated lateral CC views. The breast tissue is extremely dense, which lowers the sensitivity of mammography. There is no evidence of dominant mass, architectural distortion, or suspicious calcifications in either breast. The mammogram was interpreted with the benefit of computer aided detection (CAD). FINAL IMPRESSION: ACR BI-RADS 1: Negative. RECOMMENDATIONS: Annual screening mammography. A letter including results and recommendations was sent to the patient. Density notification was included for patients with pattern 3 or 4 breast tissue. Patient information was entered into a reminder system with a target due date for the next mammogram. At our facility, a [place] marker is positioned over a visible skin lesion and a linear marker is used to indicate a scar. A triangular marker is placed on a self reported palpable finding. D Procedure Note Provider, MD Olive - 06/25/2022 PROCEDURE: Digital screening mammogram with tomosynthesis. REASON FOR EXAM: Routine screening. FAMILY HISTORY: No family history of breast cancer. COMPARISON STUDY: [facility] [id number]. FINDINGS: Craniocaudal and mediolateral oblique images of both breasts were obtained in 2D, C-view, and 3D modes. Bilateral exaggerated lateral CC views. The breast tissue is extremely dense, which lowers the sensitivity of mammography. There is no evidence of dominant mass, architectural distortion, or suspicious calcifications in either breast. The mammogram was interpreted with the benefit of computer aided detection (CAD). FINAL IMPRESSION: ACR BI-RADS 1: Negative. RECOMMENDATIONS: Annual screening mammography. A letter including results and recommendations was sent to the patient. Density notification was included for patients with pattern 3 or 4 breast tissue. Patient information was entered into a reminder system with a target due date for the next mammogram. At our facility, a [place] marker is positioned over a visible skin lesion and a linear marker is used to indicate a scar. A triangular marker is placed on a self reported palpable finding. D [facility] Historical Provider IMG MAMMOGRAPHY ORDERAB LES Final Result from Last 3 Months or Most Recently Relevant to Health Maintenance Insurance MEDICARE PART A B [facility] SUPP Care Teams Spring Assembler Relationship Specialty Start Date End Date Macy Matos, [address] [facility] [place] [address] PCP - General Family Medicine 05/21/22
--- OUTSIDE RECORDS SUMMARY | 2024-08-23 14:40 | XMS_ITS | Referral Summary ---
Author Organization [facility] [employer] Address [address] [place] [address] Care Team Providers Care Copyright Manager Name Role Phone Macy Matos DO Primary Care Provider [phone] [phone] Allergies No known active allergies Medications aspirin [...] Date All rded Speak language other than Australian at home Not on file 03/27/2023 Want [...] 06/13/2022 11:14 AM EDT Plan of Treatment Not on file Procedures Procedure Name Priority Date/Time Associated Diagnosis [...] family history of breast cancer. COMPARISON STUDY: [facility] . FINDINGS: Craniocaudal and mediolateral oblique images of [...] the next mammogram. At our facility, a upper [place] marker is positioned over a visible skin lesion and a linear marker is used to indicate a scar. A triangular marker is placed on a self reported palpable finding. D Procedure Note Provider, MD Olive - 06/25/2022 PROCEDURE: Digital screening mammogram with tomosynthesis. REASON FOR EXAM: Routine screening. FAMILY HISTORY: No family history of breast cancer. COMPARISON STUDY: [facility] . FINDINGS: Craniocaudal and mediolateral oblique images of [...] the next mammogram. At our facility, a upper [place] marker is positioned over a visible skin lesion and a linear marker is used to indicate a scar. A triangular marker is placed on a self reported palpable finding. D [facility] Historical Provider IMG MAMMOGRAPHY ORDERAB LES Final Result from Last 3 Months or Most Recently Relevant to Health Maintenance Insurance MEDICARE PART A [place] [address] Care Teams Copyright Manager Relationship Specialty Start Date End Date Macy Matos, [address] [facility] [place] [address] PCP - General Family Medicine 05/21/22
[2024-08-23 15:01] LABS: Basophils # 0.1 K/mm3 (0-0.2); Basophils % 0.9 % (0.1-2.0); Eosinophils % 0.6 % (0.1-12.0); Hematocrit 36.8 % (37.0-47.0); Hemoglobin 12.2 g/dL (12.2-16.2); Immature Granulocytes # 0.01 10^3uL; Immature Granulocytes % 0.1 %; Lymphocytes # 1.2 K/mm3 (0.7-4.5); Lymphocytes % 16.7 % (10-50); Mean Corpuscular HGB Conc 33.2 g/dL (31.8-35.4); Mean Corpuscular Hemoglobin 33.5 pg (27.0-31.2); Mean Corpuscular Volume 101.1 fl (81-99); Mean Platelet Volume 11.6 fl (7.4-10.4); Monocytes # 0.6 K/mm3 (0.1-1.0); Monocytes % 8.8 % (1.7-9.3); Neutrophils # 5.1 K/mm3 (1.8-7.8); Neutrophils % 72.9 % (37.0-80.0); Nucleated Red Blood Cells # 0 10^3/uL; Nucleated Red Blood Cells % 0 %; Platelet Count 232 K/mm3 (142-424); Red Blood Count 3.64 M/mm3 (4.20-5.40); Red Cell Distribution Width 12.6 % (11.5-17.5); Red Cell Distribution Width-SD 46.6 fL; White Blood Count 6.9 K/mm3 (4.8-10.8)
[2024-08-23 15:25] LABS: Iron 80 ug/dL (37-170)
[2024-08-23 15:26] LABS: Chol/HDL Ratio 2.6 (1-3.5); Cholesterol 174 mg/dl (140-200); HDL Cholesterol 66 mg/dl (40-60); Triglycerides 86 mg/dl (30-150); VLDL Cholesterol 17 mg/dL (0-40)
[2024-08-23 15:35] LABS: Total Iron Binding Capacity 266 ug/dL (265-497)
[2024-08-23 15:36] LABS: Direct LDL Cholesterol 68.29 mg/dL (100-129)
[2024-08-23 16:02] LABS: Ferritin 91.5 ng/ml (11.1-264)
== END 2024-08-23 23:59 | disposition home or self-care (01) ==
LOC: LAB.DROPOF 14:36
PROVIDERS: PCP Nurse Practitioner Family; Visit Provider Nurse Practitioner Family
DX: D64.9 Anemia, unspecified (principal); I10 Essential (primary) hypertension; N95.1 Menopausal and female climacteric states; E78.5 Hyperlipidemia, unspecified; R53.83 Other fatigue; Z68.28 Body mass index [BMI] 28.0-28.9, adult
CPT/HCPCS: 80061; 82728; 83540; 83550; 85025

== ENCOUNTER 2024-12-28 13:51 | Outpatient (CLI) | payer MEDICARE, SELFPAY ==
--- NOTE | 2024-12-28 13:54 | XR_ITS ---
FINAL REPORT CLINICAL HISTORY: left hip pain COMPARISON: None FINDINGS: LEFT HIP: 3 views of the left hip demonstrate no acute fracture or dislocation. The joint spaces demonstrate moderate degenerative change without acute abnormality. The visualized bony structures are well aligned. No soft tissue abnormality is seen. IMPRESSION: Moderate degenerative change without acute osseous abnormality. Reviewed, Interpreted and Dictated by Winnie Gee MD Transcribed by Meri Riley Authenticated and [facility]
== END 2024-12-28 23:59 | disposition home or self-care (01) ==
LOC: RAD 13:53
PROVIDERS: PCP Nurse Practitioner Family; Visit Provider Nurse Practitioner Family
DX: M25.552 Pain in left hip (principal); M16.12 Unilateral primary osteoarthritis, left hip
CPT/HCPCS: 73502

== ENCOUNTER 2025-02-01 11:00 | Outpatient (RCR) | payer MEDICARE, SELFPAY ==
--- NOTE | 2025-01-12 12:23 | HMH.PTOPEV ---
PT Evaluation Rehab PT Outpatient Evaluation Start: 01/12/25 08:00 Freq: Status: Active Protocol: Document 01/12/25 08:00 ERINN (Rec: 01/12/25 12:22 ERINN [id number]) E-signed By Minnie Benoit, PT Outpatient Therapy Subjective History Subjective History Pt is a 74 y/o female referred to PT for bilateral hip pain and right lower extremity weakness. Pt reports history of R KYLE in 1998 and feels that her R leg is weaker than the left. Pt reports due to the right leg being weaker she puts more weight on the left hip to compensate which has caused mild left posterior hip pain. Pt denies more distal LE symptoms or paresthesia. Pt denies right hip pain, the right leg giving way or required use of an assistive device. Pt reports most discomfort and stiffness occurs after prolonged sitting or in the morning time after sleeping. Pt also reports some difficulty traversing stairs leading with the right leg after prolonged sitting. Per records, pt had a left hip radiograph on 12/28/24 with impression of Moderate degenerative change without acute osseous abnormality. Pt denies having recent imaging of the right hip with most recent in 2020, states she took the report to an orthopedic in [place] and was told the hardware looked good. Medical History: Hypertension, Hyperlipidemia, Hx of R KYLE in 1998 New diagnosis of No cancer in past 12 months? Chief Complaint Stiff,Weakness Symptom Type Ache,Dull Current Functional Sitting,Stairs Limitations Symptom Description Intermittent Level of pain today 0 (0-10) Pain scale - at its 0 best (0-10) Pain scale - at its 5 worst (0-10) Hip/Knee Eval Gait Observation General Gait Pattern No Deviations/Normal Observation Assistive Device Assistive Devices None / NA Palpation Tenderness bilateral Hip Palpation Tenderness Findings Hip Palpation 1/4 TTP of left greater trochanter, piriformis mm Overall Comment MMT left Hip Flexion Strength 4+ Good+ Grade Hip Abduction 4 Good Strength Grade Hip Adduction 4 Good Strength Grade Hip Extension 4 Good Strength Grade Knee Extension 5 Normal Strength Grade Knee Flexion 5 Normal Strength Grade right Hip Flexion Strength 4 Good Grade Hip Abduction 4 Good Strength Grade Hip Adduction 4 Good Strength Grade Hip Extension 4 Good Strength Grade Knee Extension 5 Normal Strength Grade Knee Flexion 5 Normal Strength Grade ROM left Hip Flexion w/Knee 110 Flexed Active Range of Motion (degrees) Hip External 35 Rotation Active Range of Motion ( degrees) Hip Internal 40 Rotation Active Range of Motion ( degrees) right Hip Flexion w/Knee 104 Flexed Active Range of Motion (degrees) Hip External 28 Rotation Active Range of Motion ( degrees) Hip Internal 40 Rotation Active Range of Motion ( degrees) Lower Extremity Functional Index Activities Today, do you or would you have any difficulty at all with: a.Any of your usual No difficulty work, housework or school activities b. Your usual No difficulty hobbies, recreational or sporting activities c. Getting into or No difficulty out of the bath d. Walking between No difficulty rooms e. Putting on your No difficulty shoes or socks f. Squatting A little bit of difficulty g. Lifting an object No difficulty , like a bag of groceries from the floor h. Performing light No difficulty activities around your home i. Performing heavy No difficulty activities around your home j. Getting into or No difficulty out of a car k. Walking 2 blocks No difficulty l. Walking a mile No difficulty m. Going up or down No difficulty 10 stairs (about 1 flight of stairs) n. Standing for 1 No difficulty hour o. Sitting for 1 No difficulty hour p. Running on even A little bit of difficulty ground q. Running on uneven A little bit of difficulty ground r. Making sharp No difficulty turns while running fast s. Hopping No difficulty t. Rolling over in No difficulty bed LEFI Score Lower Extremity 77 Functional Index Score Outpatient Therapy Assessment Impairments Problems/ Palpation Tenderness,Impaired Range of Motion,Impaired Impairmments Strength,Subjective C/O Pain,Impaired Self Care/Self Management PT Patient Goals PT Patient Goals PT Short Term 3 weeks: Patient Goals 1. Verbalize compliance with HEP to assist with progress. 2. Improve pain at worst to 3/10 on VAS to improve overall QOL/function. PT Intermediate Patient 6 weeks: Goals 1. Improve R hip AROM flex to at least 110 equal the opposite limb 2. Improve BLE MMT to 4+-5/5 grossly to assist with function. 3. Improve pain at worst to 0-1/10 on VAS to improve overall QOL/function. 4. [place] 6 step/curb leading with RLE without pain or difficulty to assist with community navigation. Outpatient Therapy Plan of Care Treatment Plan May Include Therapeutic Exercise Yes Including Home Exercise Program Manual Therapy Yes Techniques Neuromuscular Re- Yes education Therapeutic Yes Activities to Return to Previous Functional/Work Level ADL/Self Care Yes Education Thermal Modalities Yes Electrical Yes Stimulation Ultrasound/ Yes Phonophoresis Iontophoresis Yes Massage Yes Group Therapy for Yes Medicare Eval/Re-Eval Yes Frequency Times per week 2 Duration Number of Weeks 4-6 Addendums This patient is a No candidate for social or vocational rehab ? Patient/Guardian Yes verbally acknowledges understanding of treatment program and consents to further treatment? Patient/Guardian Yes verbally acknowledges understanding of diagnosis, prognosis and goals for treatment? Eval Complexity PT Charges [id number] - Low Complexity Shoulder/Elbow Eval Shoulder Objective Measurements Elbow Objective Measurements PHYSICIAN CERTIFICATION: I certify the specified therapy services for Joy Turner are required, authorized, and reviewed every 30 days.
== END 2025-02-01 23:59 | disposition home or self-care (01) ==
LOC: PT 11:00
PROVIDERS: PCP Nurse Practitioner Family; Visit Provider Nurse Practitioner Family
DX: M25.552 Pain in left hip (principal); M25.551 Pain in right hip
CPT/HCPCS: 97110; 97161; 97530

== ENCOUNTER 2025-02-14 10:07 | Outpatient (CLI) | payer MEDICARE, SELFPAY ==
--- NOTE | 2025-02-14 10:10 | XR_ITS ---
PROCEDURE INFORMATION: Exam: XR Right Hip Exam date and time: 02/14/2025 10:12 AM Age: 74 years old Clinical indication: Hip pain; Right hip; Prior surgery; Surgery date: 6+ months; Surgery type: 1998 hip rep; Additional info: Right hip pain TECHNIQUE: Imaging protocol: Radiologic exam of the right hip. Views: 2 or 3 views hip with pelvis when performed. Total images: 3 COMPARISON: CR XR HIP RT 2-3V W/PELVIS 12/07/2020 8:19 AM FINDINGS: Bones/joints: Status post right total hip replacement without evidence of complications. Soft tissues: Unremarkable. IMPRESSION: Status post right total hip replacement without evidence of complications.
--- NOTE | 2025-02-14 10:10 | XR_ITS ---
PROCEDURE INFORMATION: Exam: XR Right Femur Exam date and time: 02/14/2025 10:12 AM Age: 74 years old Clinical indication: Pain; Thigh; Right; Prior surgery; Surgery date: 6+ months; Surgery type: 1998 hip rep; Additional info: Right femur pain TECHNIQUE: Imaging protocol: Radiologic exam of the right femur. Views: 2 views. Total images: 4 COMPARISON: CR XR KNEE RT 3V 03/21/2022 9:30 AM FINDINGS: Bones/joints: Postoperative changes of the right hip without evidence of complications. No evidence of acute fracture or dislocation. Soft tissues: Unremarkable. IMPRESSION: 1. Postoperative changes of the right hip without evidence of complications. 2. No evidence of acute fracture or dislocation.
[2025-02-14 14:09] LABS: Microscopic, Urine URINE MICROSCOPIC (MICROSCOPIC)
[2025-02-14 14:30] LABS: Hematocrit 36.3 % (37.0-47.0); Hemoglobin 11.8 g/dL (12.2-16.2); Immature Granulocytes % 0.2 %; Mean Corpuscular HGB Conc 32.5 g/dL (31.8-35.4); Mean Corpuscular Hemoglobin 32.7 pg (27.0-31.2); Mean Corpuscular Volume 100.6 fl (81-99); Nucleated Red Blood Cells % 0 %; Platelet Count 220 K/mm3 (142-424); Red Blood Count 3.61 M/mm3 (4.20-5.40); Red Cell Distribution Width-SD 45.3 fL; White Blood Count 6.3 K/mm3 (4.8-10.8)
[2025-02-14 14:42] LABS: Bilirubin,Urine Negative (Negative); Color,Urine YELLOW (Yellow); Glucose,Urine (UA) Negative (Negative); Ketones,Urine Negative (Negative); Leukocyte Esterase,Urine Negative (Negative); PH,Urine 5.5 (5.0-8.5); Protein,Urine Negative (Negative); Specific Gravity, Urine >= 1.030 (1.005-1.030); Urobilinogen,Urine 0.2 EU/dl (0.2)
[2025-02-14 14:47] LABS: Amorphous Sediment,Urine 4+ /lpf; Bacteria,Urine 4+ /lpf; Squamous Epithelial Cell,Urine Occasional #/hpf (0-5); WBC,Urine Occasional #/hpf (0-3)
[2025-02-14 14:51] LABS: Alanine Aminotransferase 13 U/L (12-78); Albumin Level 4.6 g/dl (3.5-5.0); Albumin/Globulin Ratio 1.3 (1.1-1.8); Alkaline Phosphatase 71 U/L (38-126); Anion Gap 15.5 mEq/L (5-15); Aspartate Amino Transferase 22 U/L (14-36); Bilirubin,Total 0.9 mg/dl (0.2-1.3); Blood Urea Nitrogen 12 mg/dl (7-17); Calcium 9.7 mg/dl (8.4-10.2); Carbon Dioxide 28 mmol/L (22.0-30.0); Chloride 102 mmol/L (98-107); Cholesterol 158 mg/dl (140-200); Creatinine,Serum 0.90 mg/dl (0.52-1.04); Estimated Glomerular Filt Rate 62 ml/min (>60); GFR (African American) 74 ML/MIN (>60); Globulin 3.5 g/dL (1.3-3.2); Glucose 112 mg/dl (74-100); HDL Cholesterol 69 mg/dl (40-60); Potassium 4.5 mmoL/L (3.5-5.1); Sodium 141 mmol/L (136-145); Total Protein,Serum 8.1 g/dl (6.3-8.2); Triglycerides 106 mg/dl (30-150)
[2025-02-14 15:02] LABS: 25-OH Vitamin D, Total 33.9 ng/mL (30-100)
[2025-02-14 15:07] LABS: Free T4 (Free Thyroxine) 1.16 ng/dl (0.78-2.19)
[2025-02-14 15:10] LABS: Hemoglobin A1C 6.0 % (4.0-6.0)
[2025-02-14 15:21] LABS: Thyroid Stimulating Hormone 1.76 uIU/mL (0.465-4.68)
[2025-02-14 15:40] LABS: Vitamin B12 303 pg/mL (239-931)
== END 2025-02-14 23:59 | disposition home or self-care (01) ==
LOC: RAD 10:08
PROVIDERS: PCP Nurse Practitioner Family; Visit Provider Nurse Practitioner Family
DX: M89.8X5 Other specified disorders of bone, thigh (principal); M25.551 Pain in right hip; G89.29 Other chronic pain; D64.9 Anemia, unspecified; E55.9 Vitamin D deficiency, unspecified; L65.8 Other specified nonscarring hair loss; R79.89 Other specified abnormal findings of blood chemistry; I10 Essential (primary) hypertension; R73.03 Prediabetes; R00.1 Bradycardia, unspecified; N95.1 Menopausal and female climacteric states; R39.9 Unspecified symptoms and signs involving the genitourinary system; E78.5 Hyperlipidemia, unspecified; Z96.641 Presence of right artificial hip joint
CPT/HCPCS: 73502; 73552; 80053; 80061; 81001; 82306; 82607; 83036; 84156; 84439; 84443; 85025; 87086; 87088; 87186